=== PATIENT | female | born 1985 | race Caucasian/White ===

== ENCOUNTER 2017-01-15 17:41 | Emergency (ER) | payer BC ==
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
[2017-01-15] MEDS ORDERED: HYDROCODONE/ACETAMINOPHEN 5-325 MG 6 TAB/DSPK PO PRN (20:07)
[2017-01-15 20:08] VITALS: BP 115/70
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
== END 2017-01-15 20:13 | disposition home or self-care (01) ==
LOC: ER 17:41
DX: S49.91XA Unspecified injury of right shoulder and upper arm, initial encounter (principal); M25.511 Pain in right shoulder; W31.89XA Contact with other specified machinery, initial encounter; Y92.9 Unspecified place or not applicable
CPT/HCPCS: 99283

== ENCOUNTER 2017-02-16 20:09 | Emergency (ER) | payer BC ==
[2017-02-16] MEDS ORDERED: LORATADINE 10 MG TABLET PO ONE (20:33)
[2017-02-16] MEDS ORDERED: PREDNISONE 20 MG TABLET PO ONE (20:33)
[2017-02-16] MEDS ORDERED: FAMOTIDINE 20 MG TABLET PO ONE (20:33)
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
[2017-02-16 23:31] VITALS: BP 129/81
== END 2017-02-16 23:24 | disposition home or self-care (01) ==
LOC: ER 20:09
DX: L01.00 Impetigo, unspecified (principal); R22.0 Localized swelling, mass and lump, head; R22.1 Localized swelling, mass and lump, neck; F17.200 Nicotine dependence, unspecified, uncomplicated
CPT/HCPCS: 99283; J7512

== ENCOUNTER 2017-03-16 13:15 | Emergency (ER) | payer BC ==
[2017-03-16] MEDS ORDERED: NORMAL SALINE 1000 ML 1,000 ML IV ONE (14:22)
[2017-03-16] MEDS ORDERED: KETOROLAC TROMETHAMINE INJ/PF 30 MG/1 ML SDV IV ONE (14:22)
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
[2017-03-16 14:56] LABS: ABSOLUTE EOSINOPHILS # (AUTO) 0.1 10^3/uL (0.0-0.6); ABSOLUTE LYMPHOCYTES (AUTO) 3.4 10^3/uL (0.5-4.7); ABSOLUTE MONOCYTES (AUTO) 0.8 10^3/uL (0.1-1.4); ABSOLUTE NEUT (AUTO) 6.1 10^3/uL (1.7-8.2); BASOPHILS % (AUTO) 0.2 % (0-2); EOSINOPHILS % (AUTO) 1.2 % (0-6); HEMATOCRIT 38.5 % (36.0-47.0); HEMOGLOBIN 12.8 g/dL (12.0-15.5); HGB HCT DIFFERENCE -0.1; LYMPHOCYTES % (AUTO) 32.2 % (13-45); MEAN CORPUSCULAR HEMOGLOBIN 30.3 pg (27.0-33.4); MEAN CORPUSCULAR HGB CONC 33.4 g/dL (32.0-36.0); MEAN CORPUSCULAR VOLUME 91 fl (80-97); MONOCYTES % (AUTO) 7.8 % (3-13); RED BLOOD COUNT 4.24 10^6/uL (3.72-5.28); RED CELL DISTRIBUTION WIDTH 13.7 % (11.5-14.0); SEGMENTED NEUTROPHILS % (AUTO) 58.6 % (42-78); WHITE BLOOD COUNT 10.4 10^3/uL (4.0-10.5)
[2017-03-16 15:19] LABS: ALANINE AMINOTRANSFERASE 24 U/L (9-52); ALBUMIN 4.4 g/dL (3.5-5.0); ALKALINE PHOSPHATASE 55 U/L (38-126); ANION GAP 12 (5-19); ASPARTATE AMINO TRANSFERASE 24 U/L (14-36); BILIRUBIN,DIRECT 0.4 mg/dL (0.0-0.4); BILIRUBIN,TOTAL 0.6 mg/dL (0.2-1.3); BLOOD UREA NITROGEN 17 mg/dL (7-20); CALCIUM 9.8 mg/dL (8.4-10.2); CARBON DIOXIDE 24 mmol/L (22-30); CHLORIDE 106 mmol/L (98-107); CREATINE KINASE 74 U/L (30-135); CREATININE RESULT 0.68 mg/dL (0.52-1.25); GLUCOSE 88 mg/dL (75-110); MAGNESIUM 2.1 mg/dL (1.6-2.3); POTASSIUM 4.1 mmol/L (3.6-5.0); SODIUM 142.2 mmol/L (137-145); TOTAL PROTEIN 7.8 g/dL (6.3-8.2)
[2017-03-16 16:23] VITALS: BP 130/90
== END 2017-03-16 16:23 | disposition home or self-care (01) ==
LOC: ER 13:15
DX: M54.12 Radiculopathy, cervical region (principal); M54.2 Cervicalgia; G89.29 Other chronic pain; V86.99XS Unspecified occupant of other special all-terrain or other off-road motor vehicle injured in nontraffic accident, sequela; R68.84 Jaw pain; R51 Headache; R03.0 Elevated blood-pressure reading, without diagnosis of hypertension; Z79.1 Long term (current) use of non-steroidal anti-inflammatories (NSAID); Z79.899 Other long term (current) drug therapy; Z79.01 Long term (current) use of anticoagulants; Z88.8 Allergy status to other drugs, medicaments and biological substances; Z88.5 Allergy status to narcotic agent; Z88.6 Allergy status to analgesic agent
CPT/HCPCS: 99283; 96361; 96374; 36415; 82550; 83735; 85025; 80053; L3650; J1885; J7030

== ENCOUNTER 2017-10-19 13:24 | Emergency (ER) | payer OTHER, BC ==
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
[2017-10-19] MEDS ORDERED: LORAZEPAM 1 MG TABLET PO ONE (15:11)
[2017-10-19] MEDS ORDERED: NORMAL SALINE 1000 ML 1,000 ML IV ONE (15:11)
[2017-10-19] MEDS ORDERED: ACETAMINOPHEN 325 MG TABLET PO ONE (15:12)
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
[2017-10-19 17:51] LABS: APPEARANCE,URINE SLIGHTLY-CLOUDY; BILIRUBIN,URINE NEGATIVE (NEGATIVE); GLUCOSE, URINE NEGATIVE (NEGATIVE); KETONES,URINE NEGATIVE (NEGATIVE); LEUKOCYTE ESTERASE,URINE SMALL (NEGATIVE); NITRITE,URINE POSITIVE (NEGATIVE); PROTEIN,URINE NEGATIVE (NEGATIVE); URINE SPECIFIC GRAVITY 1.004; UROBILINOGEN,URINE NEGATIVE mg/dL (<2.0)
[2017-10-19 17:52] LABS: URINE BARBITURATES SCREEN NEGATIVE; URINE METHADONE SCREEN NEGATIVE; URINE OPIATES LOW NEGATIVE; URINE PHENCYCLIDINE SCREEN NEGATIVE
[2017-10-19 17:55] LABS: BACTERIA,URINE 4+ /HPF
[2017-10-19] MEDS ORDERED: CEPHALEXIN 500 MG CAPSULE PO ONE (18:21)
[2017-10-19 18:57] VITALS: BP 130/78
== END 2017-10-19 18:59 | disposition home or self-care (01) ==
LOC: ER 13:24
DX: S29.012A Strain of muscle and tendon of back wall of thorax, initial encounter (principal); N39.0 Urinary tract infection, site not specified; S16.1XXA Strain of muscle, fascia and tendon at neck level, initial encounter; V89.2XXA Person injured in unspecified motor-vehicle accident, traffic, initial encounter
CPT/HCPCS: 99284; 96360; 36415; 87086; 84443; 87088; 81001; 87186; 80307; 72070; 72125; J7030

== ENCOUNTER 2018-03-30 14:43 | Emergency (ER) | payer BC, OTHER ==
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
[2018-03-30 16:59] LABS: ABSOLUTE EOSINOPHILS # (AUTO) 0.1 10^3/uL (0.0-0.6); ABSOLUTE LYMPHOCYTES (AUTO) 3.3 10^3/uL (0.5-4.7); ABSOLUTE MONOCYTES (AUTO) 0.5 10^3/uL (0.1-1.4); ABSOLUTE NEUT (AUTO) 4.5 10^3/uL (1.7-8.2); BASOPHILS % (AUTO) 0.5 % (0-2); EOSINOPHILS % (AUTO) 0.8 % (0-6); HEMATOCRIT 42.3 % (36.0-47.0); HEMOGLOBIN 14.1 g/dL (12.0-15.5); LYMPHOCYTES % (AUTO) 39.5 % (13-45); MEAN CORPUSCULAR HEMOGLOBIN 30.1 pg (27.0-33.4); MEAN CORPUSCULAR HGB CONC 33.4 g/dL (32.0-36.0); MEAN CORPUSCULAR VOLUME 90 fl (80-97); MONOCYTES % (AUTO) 5.6 % (3-13); PLATELET COUNT 256 10^3/uL (150-450); RED BLOOD COUNT 4.68 10^6/uL (3.72-5.28); RED CELL DISTRIBUTION WIDTH 14.4 % (11.5-14.0); SEGMENTED NEUTROPHILS % (AUTO) 53.6 % (42-78); TOTAL CELLS COUNTED % (AUTO) 100 %; WHITE BLOOD COUNT 8.4 10^3/uL (4.0-10.5)
[2018-03-30 17:03] LABS: APPEARANCE,URINE CLEAR; BILIRUBIN,URINE NEGATIVE (NEGATIVE); COLOR,URINE STRAW; GLUCOSE, URINE NEGATIVE (NEGATIVE); KETONES,URINE NEGATIVE (NEGATIVE); LEUKOCYTE ESTERASE,URINE TRACE (NEGATIVE); NITRITE,URINE NEGATIVE (NEGATIVE); PROTEIN,URINE NEGATIVE (NEGATIVE); URINE SPECIFIC GRAVITY 1.003; UROBILINOGEN,URINE NEGATIVE mg/dL (<2.0)
[2018-03-30 17:16] LABS: ANION GAP 14 (5-19); BLOOD UREA NITROGEN 8 mg/dL (7-20); CARBON DIOXIDE 25 mmol/L (22-30); CHLORIDE 108 mmol/L (98-107); GLUCOSE 109 mg/dL (75-110); POTASSIUM 4.1 mmol/L (3.6-5.0); SODIUM 146.5 mmol/L (137-145)
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
--- NOTE | 2018-03-30 19:39 | RADIOLOGY REPORT (SQ) ---
EXAM DESCRIPTION: CT LTD RENAL STONE PROTOCOL ON COMPLETED DATE/TIME: 03/30/2018 7:07 pm REASON FOR STUDY: bilateral flank pain; eval stones COMPARISON: None. TECHNIQUE: CT scan of the abdomen and pelvis performed without intravenous or oral contrast. Images reviewed with lung, soft tissue, and bone windows. Reconstructed coronal and sagittal MPR images revi ewed. All images stored on PACS. All CT scanners at this facility use dose modulation, iterative reconstruction, and/or weight based d osing when appropriate to reduce radiation dose to as low as reasonably achievable (ALARA). [facility]: Dose Right [facility]: CareDose [facility]: Dose Right [facility]: Teradose 4D [facility]: [employer] RADIATION DOSE: mGy. LIMITATIONS: None. FINDINGS: LOWER CHEST: No significant findings. No nodules or infiltrates. NON-CONTRASTED LIVER, SPLEEN, ADRENALS: Evaluation limited by lack of IV contrast. No identified sign ificant masses. PANCREAS: No masses. No peripancreatic inflammatory changes. GALLBLADDER: No identified stones by CT criteria. No inflammatory changes to suggest cholecystitis. RIGHT KIDNEY AND URETER: No suspicious masses. Assessment limited by lack of IV contrast. No signif icant calcifications. No hydronephrosis or hydroureter. LEFT KIDNEY AND URETER: Marked scarring of the lower pole. No masses. No significant calcification s. No hydronephrosis or hydroureter. AORTA AND RETROPERITONEUM: No aneurysm. No retroperitoneal masses or adenopathy. BOWEL AND PERITONEAL CAVITY: No obvious masses or inflammatory changes. No free fluid. APPENDIX: Normal. PELVIS, BLADDER, AND ABDOMINAL WALL:No abnormal masses. No free fluid. Bladder normal. BONES: No significant findings. OTHER: No other significant finding. IMPRESSION: NO SIGNIFICANT OR ACUTE PROCESS IN THE ABDOMEN OR PELVIS. COMMENT: Quality ID # [id number]: Final reports with documentation of one or more dose reduction techniques (e.g., Automated exposure control, adjustment of the mA and/or kV according to patient size, use of iterative reconstruction technique) TECHNICAL DOCUMENTATION: JOB ID: [id number] [employer]- All Rights Reserved Reading location - IP/workstation name: [email or web address]
[2018-03-30 20:05] VITALS: BP 129/75
== END 2018-03-30 19:45 | disposition home or self-care (01) ==
LOC: ER 14:43
DX: N39.0 Urinary tract infection, site not specified (principal); Z79.899 Other long term (current) drug therapy; Z87.891 Personal history of nicotine dependence; Z88.5 Allergy status to narcotic agent; Z88.6 Allergy status to analgesic agent
CPT/HCPCS: 36415; 76380; 80048; 81001; 81025; 85025; 87086; 87088; 87186; 99284

== ENCOUNTER 2018-04-05 16:21 | Emergency (ER) | payer BC ==
[2018-04-05] MEDS ORDERED: PREDNISONE 20 MG TABLET PO ONE (17:14)
[2018-04-05] MEDS ORDERED: FAMOTIDINE 20 MG TABLET PO ONE (17:15)
[2018-04-05] MEDS ORDERED: DIPHENHYDRAMINE HCL 50 MG CAPSULE PO ONE (17:15)
[2018-04-05] MEDS ORDERED: ACETAMINOPHEN 325 MG TABLET PO ONE (17:16)
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
--- NOTE | 2018-04-05 19:01 | ER Document Report ---
ED General - General Chief Complaint: Allergic Reaction Stated Complaint: POSSIBLE ALLERGIC REACTION Time Seen by Provider: 04/05/18 17:08 Mode of Arrival: Ambulatory Information source: Patient Notes: 32-year-old female who had a cortisone injection in the right tricep region this morning presents with complaints of pain. Patient is concerned she may be having allergic reaction states the pain radiates from the injection site to her back anterior chest wall. She denies any shortness of breath difficulty breathing she denies any rash anywhere TRAVEL OUTSIDE OF THE [place] IN LAST 30 DAYS: No - HPI Onset: Just prior to arrival Onset/Duration: Sudden Quality of pain: Sharp Severity: Mild Pain Level: 1 Associated symptoms: Body/muscle aches Exacerbated by: Movement Relieved by: Denies Similar symptoms previously: Yes Recently seen / treated by doctor: Yes - Related Data Allergies/Adverse Reactions: citalopram hydrobromide [From Celexa] Allergy (Verified 04/05/18 16:25) eletriptan [From Relpax] Allergy (Verified 04/05/18 16:25) hydrocodone bitartrate [From Vicodin] Allergy (Verified 04/05/18 16:25) naproxen sodium [From Treximet] Allergy (Verified 04/05/18 16:25) sumatriptan [From Imitrex] Allergy (Verified 04/05/18 16:25) sumatriptan succinate [From Imitrex] Allergy (Verified 04/05/18 16:25) adhesive tape Adverse Reaction (Verified 04/05/18 16:25) Past Medical History - Social History Smoking Status: Former Smoker Cigarette use (# per day): No Chew tobacco use (# tins/day): No Smoking Education Provided: No Frequency of alcohol use: Rare Drug Abuse: None Family History: Reviewed & Not Pertinent Patient has suicidal ideation: No Patient has homicidal ideation: No Neurological Medical History: Reports: Hx Migraine Renal/ Medical History: Denies: Hx Peritoneal Dialysis Musculoskeltal Medical History: Reports Hx Arthritis, Reports Hx Musculoskeletal Deformity, Reports Hx Musculoskeletal Trauma Psychiatric Medical History: Reports: Hx Anxiety Past Surgical History: Reports: Hx Orthopedic Surgery - Rt shoulder; Lt knee x2 - Immunizations Immunizations up to date: Yes Hx Diphtheria, Pertussis, Tetanus Vaccination: Yes Review of Systems - Review of Systems Notes: REVIEW OF SYSTEMS: CONSTITUTIONAL : Denies fever, chills, or sweats. Denies recent illness. EENT: Denies eye, ear, throat, or mouth pain or symptoms. Denies nasal or sinus congestion or discharge. Denies throat, tongue, or mouth swelling or difficulty swallowing. CARDIOVASCULAR: Denies chest pain. Denies palpitations or racing or irregular heart beat. Denies ankle edema. RESPIRATORY: Denies cough, cold, or chest congestion. Denies shortness of breath, difficulty breathing, or wheezing. GASTROINTESTINAL: Denies abdominal pain or distention. Denies nausea, vomiting , or diarrhea. Denies blood in vomitus, stools, or per rectum. Denies black, tarry stools. Denies constipation. GENITOURINARY: Denies difficulty urinating, painful urination, burning, frequency, blood in urine, or discharge. FEMALE GENITOURINARY: Denies vaginal bleeding, heavy or abnormal periods, irregular periods. Denies vaginal discharge or odor. MUSCULOSKELETAL: Admits to right shoulder pain SKIN: Denies rash, lesions or sores. HEMATOLOGIC : Denies easy bruising or bleeding. LYMPHATIC: Denies swollen, enlarged glands. NEUROLOGICAL: Denies confusion or altered mental status. Denies passing out or loss of consciousness. Denies dizziness or lightheadedness. Denies headache. Denies weakness or paralysis or loss of use of either side. Denies problems with gait or speech. Denies sensory loss, numbness, or tingling. Denies seizures. PSYCHIATRIC: Denies anxiety or stress. Denies depression, suicidal ideation, or homicidal ideation. ALL OTHER SYSTEMS REVIEWED AND NEGATIVE. PHYSICAL EXAMINATION: GENERAL: Well-appearing, well-nourished and in mild distress. HEAD: Atraumatic, normocephalic. EYES: Pupils equal round and reactive to light, extraocular movements intact, conjunctiva are normal. ENT: Nares patent, oropharynx clear without exudates. Moist mucous membranes. NECK: Normal range of motion, supple without lymphadenopathy LUNGS: Breath sounds clear to auscultation bilaterally and equal. No wheezes rales or rhonchi. HEART: Regular rate and rhythm without murmurs ABDOMEN: Soft, nontender, nondistended abdomen. No guarding, no rebound. No masses appreciated. Female : deferred Musculoskeletal: Normal range of motion, no pitting or edema. No cyanosis. Pain with range of motion of the right upper extremity NEUROLOGICAL: Cranial nerves grossly intact. Normal speech, normal gait. Normal sensory, motor exams PSYCH: Normal mood, normal affect. SKIN: Warm, Dry, normal turgor, no rashes or lesions noted. Small puncture wounds from injection site noted no erythema no drainage Dictation was performed using [place] voice recognition software Physical Exam - Vital signs Vitals: Temp Pulse Resp BP Pulse Ox 98.6 F 76 18 127/85 H 97 04/05/18 16:43 04/05/18 16:43 04/05/18 16:43 04/05/18 16:43 04/05/18 16:43 Course - Re-evaluation Re-evalutation: 04/05/18 22:47 Patient's presentation is quite benign, I believe there may have been development of a nerve which may be causing some pain radiating from the shoulder. Overall the patient looks well is in no distress except for mild pain After performing a Medical Screening Examination, I estimate there is LOW risk for infection bleeding paralysis, thus I consider the discharge disposition reasonable. I have reevaluated this patient multiple times and no significant life threatening changes are noted. The patient and I have discussed the diagnosis and risks, and we agree with discharging home and close follow-up. We also discussed returning to the Emergency Department immediately if new or worsening symptoms occur with the understanding that symptoms and presentations can change. We have discussed the symptoms which are most concerning (e.g., saddle anesthesia, urinary or bowel incontinence or retention, changing or worsening pain) that necessitate immediate return. - Vital Signs Vital signs: Temp Pulse Resp BP Pulse Ox 98.6 F 80 18 125/78 95 04/05/18 19:22 04/05/18 19:22 04/05/18 19:22 04/05/18 19:22 04/05/18 19:22 Discharge - Discharge Clinical Impression: Nerve impingement Arm pain Qualifiers: Laterality: right Qualified Code(s): M79.601 - Pain in right arm Condition: Stable Disposition: HOME, SELF-CARE Instructions: Neuropathy ([facility]) Prescriptions: Tramadol HCl 50 mg PO Q6 #10 tablet Referrals: MARCOS KWAN MD [Primary Care Provider] - Follow up as needed
[2018-04-05 19:23] VITALS: BP 125/78
== END 2018-04-05 19:23 | disposition home or self-care (01) ==
LOC: ER 16:21
DX: M75.41 Impingement syndrome of right shoulder (principal); M79.601 Pain in right arm; M79.1 Myalgia; Z87.891 Personal history of nicotine dependence
CPT/HCPCS: 99283; J7512

== ENCOUNTER 2018-05-29 22:05 | Emergency (ER) | payer BC ==
[2018-05-29] MEDS ORDERED: ASPIRIN 81 MG TABLET, CHEWABLE PO ONE (22:22)
--- NOTE | 2018-05-29 23:39 | RADIOLOGY REPORT (SQ) ---
EXAM DESCRIPTION: XR CHEST 1 VIEW COMPLETED DATE/TME: 05/29/2018 22:22 EXAM DESCRIPTION: Single view of the chest CLINICAL HISTORY: cp COMPARISON: 08/21/2014 FINDINGS: Single frontal view of the chest. The cardiomediastinal silhouette has normal size and contour. No consolidation, pneumothorax, or pleural effusion. No displaced rib fractures identified. Upper abdominal soft tissues are unremarkable. IMPRESSION: 1. No acute pulmonary process identified.
[2018-05-30] MEDS ORDERED: ONDANSETRON 4 MG TAB.RAPDIS PO ONE (00:17)
--- NOTE | 2018-05-30 00:20 | ER Document Report ---
ED Medical Screen (RME) - General Chief Complaint: Chest Pain Stated Complaint: CHEST PAIN Time Seen by Provider: 05/30/18 00:16 Mode of Arrival: Ambulatory Information source: Patient Notes: A 32-year-old female presents to ED for complaint of pain in her right shoulder and neck pain and across her chest and back and nausea with dry heaving. She states she recently had a MRI that shows a bone growth in her right shoulder and some possible fluid in her right shoulder. She states she called the orthopedic today and they told her to fax the report over and then called to get an appointment. She states she got the MRI ordered by [facility] who provides her with Lyrica but not narcotics. Patient is alert and oriented respirations regular and unlabored no acute distress noted and vital signs are stable. Patient is moving freely while in the emergency room pit area. I have greeted and performed a rapid initial assessment of this patient. A comprehensive ED assessment and evaluation of the patient, analysis of test results and completion of medical decision making process will be conducted by an additional ED providers. TRAVEL OUTSIDE OF THE [place] IN LAST 30 DAYS: No - Related Data Allergies/Adverse Reactions: citalopram hydrobromide [From Celexa] Allergy (Verified 04/05/18 16:25) eletriptan [From Relpax] Allergy (Verified 04/05/18 16:25) hydrocodone bitartrate [From Vicodin] Allergy (Verified 04/05/18 16:25) naproxen sodium [From Treximet] Allergy (Verified 04/05/18 16:25) sumatriptan [From Imitrex] Allergy (Verified 04/05/18 16:25) sumatriptan succinate [From Imitrex] Allergy (Verified 04/05/18 16:25) adhesive tape Adverse Reaction (Verified 04/05/18 16:25) Past Medical History Neurological Medical History: Reports: Hx Migraine Renal/ Medical History: Denies: Hx Peritoneal Dialysis Musculoskeltal Medical History: Reports Hx Arthritis, Reports Hx Musculoskeletal Deformity, Reports Hx Musculoskeletal Trauma Psychiatric Medical History: Reports: Hx Anxiety Past Surgical History: Reports: Hx Orthopedic Surgery - Rt shoulder; Lt knee x2 - Immunizations Immunizations up to date: Yes Hx Diphtheria, Pertussis, Tetanus Vaccination: Yes Physical Exam - Vital signs Vitals: Temp Pulse Resp BP Pulse Ox 97.4 F 96 18 112/82 97 05/29/18 23:35 05/29/18 23:35 05/29/18 23:35 05/29/18 23:35 05/29/18 23:35 Course - Vital Signs Vital signs: Temp Pulse Resp BP Pulse Ox 97.4 F 96 18 112/82 97 05/29/18 23:35 05/29/18 23:35 05/29/18 23:35 05/29/18 23:35 05/29/18 23:35 Doctor's Discharge - Discharge Referrals: MARCOS KWAN MD [Primary Care Provider] - Follow up as needed
[2018-05-30 00:44] LABS: ABSOLUTE BASOPHILS # (AUTO) 0.1 10^3/uL (0.0-0.2); ABSOLUTE EOSINOPHILS # (AUTO) 0.1 10^3/uL (0.0-0.6); ABSOLUTE LYMPHOCYTES (AUTO) 3.6 10^3/uL (0.5-4.7); ABSOLUTE MONOCYTES (AUTO) 0.7 10^3/uL (0.1-1.4); ABSOLUTE NEUT (AUTO) 6.7 10^3/uL (1.7-8.2); BASOPHILS % (AUTO) 0.6 % (0-2); EOSINOPHILS % (AUTO) 1.1 % (0-6); HEMATOCRIT 43.7 % (36.0-47.0); LYMPHOCYTES % (AUTO) 32.3 % (13-45); MEAN CORPUSCULAR HEMOGLOBIN 30.9 pg (27.0-33.4); MEAN CORPUSCULAR HGB CONC 34.3 g/dL (32.0-36.0); MEAN CORPUSCULAR VOLUME 90 fl (80-97); MONOCYTES % (AUTO) 5.9 % (3-13); PLATELET COUNT 263 10^3/uL (150-450); RED BLOOD COUNT 4.85 10^6/uL (3.72-5.28); RED CELL DISTRIBUTION WIDTH 13.7 % (11.5-14.0); SEGMENTED NEUTROPHILS % (AUTO) 60.1 % (42-78); TOTAL CELLS COUNTED % (AUTO) 100 %; WHITE BLOOD COUNT 11.2 10^3/uL (4.0-10.5)
[2018-05-30 01:04] LABS: ALANINE AMINOTRANSFERASE 31 U/L (9-52); ALBUMIN 4.8 g/dL (3.5-5.0); ALKALINE PHOSPHATASE 75 U/L (38-126); ANION GAP 15 (5-19); ASPARTATE AMINO TRANSFERASE 24 U/L (14-36); BILIRUBIN,DIRECT 0.4 mg/dL (0.0-0.4); BILIRUBIN,TOTAL 0.7 mg/dL (0.2-1.3); BLOOD UREA NITROGEN 12 mg/dL (7-20); CALCIUM 9.8 mg/dL (8.4-10.2); CARBON DIOXIDE 25 mmol/L (22-30); CHLORIDE 106 mmol/L (98-107); CREATINE KINASE 41 U/L (30-135); GLUCOSE 93 mg/dL (75-110); POTASSIUM 4.3 mmol/L (3.6-5.0); SODIUM 145.5 mmol/L (137-145)
[2018-05-30 01:15] LABS: CREATINE KINASE MB < 0.22 ng/mL (<4.55); TROPONIN I < 0.012 ng/mL
[2018-05-30 03:15] LABS: APPEARANCE,URINE CLOUDY; BILIRUBIN,URINE NEGATIVE (NEGATIVE); COLOR,URINE YELLOW; GLUCOSE, URINE NEGATIVE (NEGATIVE); KETONES,URINE NEGATIVE (NEGATIVE); LEUKOCYTE ESTERASE,URINE LARGE (NEGATIVE); NITRITE,URINE POSITIVE (NEGATIVE); PROTEIN,URINE NEGATIVE (NEGATIVE); URINE SPECIFIC GRAVITY 1.015; UROBILINOGEN,URINE NEGATIVE mg/dL (<2.0)
[2018-05-30] MEDS ORDERED: PHENAZOPYRIDINE HCL 100 MG TABLET PO ONE (03:19)
[2018-05-30] MEDS ORDERED: SULFAMETHOXAZOLE/TRIMETHOPRIM 800-160 MG TABLET PO ONE (03:19)
--- NOTE | 2018-05-30 03:20 | ER Document Report ---
ED GI/ - General Chief Complaint: Chest Pain Stated Complaint: CHEST PAIN Time Seen by Provider: 05/30/18 00:16 Mode of Arrival: Ambulatory Notes: Patient is a 32-year-old female who presents with chief complaint right-sided chest pain with radiation to her right shoulder and right back. Patient reports this pain has been going on for 1-2 years. Patient reports that the pain in her right chest usually lasts for about 1-2 minutes per episode and self resolving. Patient reports that she has been vomiting for the last 2 days and that she is only able to hold down Mountain Dew and boiled eggs. TRAVEL OUTSIDE OF THE [place] IN LAST 30 DAYS: No - Related Data Allergies/Adverse Reactions: citalopram hydrobromide [From Celexa] Allergy (Verified 04/05/18 16:25) eletriptan [From Relpax] Allergy (Verified 04/05/18 16:25) hydrocodone bitartrate [From Vicodin] Allergy (Verified 04/05/18 16:25) naproxen sodium [From Treximet] Allergy (Verified 04/05/18 16:25) sumatriptan [From Imitrex] Allergy (Verified 04/05/18 16:25) sumatriptan succinate [From Imitrex] Allergy (Verified 04/05/18 16:25) adhesive tape Adverse Reaction (Verified 04/05/18 16:25) Past Medical History - General Information source: Patient - Social History Smoking Status: Never Smoker Frequency of alcohol use: None Drug Abuse: None Family History: Reviewed & Not Pertinent Neurological Medical History: Reports: Hx Migraine Renal/ Medical History: Denies: Hx Peritoneal Dialysis Musculoskeletal Medical History: Reports Hx Arthritis, Reports Hx Musculoskeletal Deformity, Reports Hx Musculoskeletal Trauma Psychiatric Medical History: Reports: Hx Anxiety Past Surgical History: Reports: Hx Orthopedic Surgery - Rt shoulder; Lt knee x2 - Immunizations Immunizations up to date: Yes Hx Diphtheria, Pertussis, Tetanus Vaccination: Yes Review of Systems - Review of Systems Constitutional: No symptoms reported EENT: No symptoms reported Cardiovascular: See HPI Respiratory: No symptoms reported Gastrointestinal: No symptoms reported Genitourinary: Other - Cloudy and foul-smelling urine Female Genitourinary: No symptoms reported Musculoskeletal: No symptoms reported Skin: No symptoms reported Hematologic/Lymphatic: No symptoms reported Neurological/Psychological: No symptoms reported Physical Exam - Vital signs Vitals: Temp Pulse Resp BP Pulse Ox 97.4 F 96 18 112/82 97 05/29/18 23:35 05/29/18 23:35 05/29/18 23:35 05/29/18 23:35 05/29/18 23:35 - Notes Notes: PHYSICAL EXAMINATION: GENERAL: Well-appearing, well-nourished and in no acute distress. HEAD: Atraumatic, normocephalic. EYES: Pupils equal round and reactive to light, extraocular movements intact, conjunctiva are normal. ENT: Nares patent, oropharynx clear without exudates. Moist mucous membranes. NECK: Normal range of motion, supple without lymphadenopathy LUNGS: Breath sounds clear to auscultation bilaterally and equal. No wheezes rales or rhonchi. HEART: Regular rate and rhythm without murmurs ABDOMEN: Soft, nontender, nondistended abdomen. No guarding, no rebound. No masses appreciated. Female : No CVA tenderness. Musculoskeletal: Normal range of motion, no pitting or edema. No cyanosis. NEUROLOGICAL: Cranial nerves grossly intact. Normal speech, normal gait. Normal sensory, motor exams PSYCH: Normal mood, normal affect. SKIN: Warm, Dry, normal turgor, no rashes or lesions noted. Course - Re-evaluation Re-evalutation: Patient is an otherwise healthy 32-year-old female presenting with chief complaint of chest pain. Patient was initially seen by triage provider who ordered a chest pain workup. On my initial encounter with the patient and asking the patient what she was here for she removed an MRI report from her purse from 3 months ago showing that she had chronic injuries to her right shoulder. Patient reports that she has not followed up with her primary care provider about this. Patient further reports to me that she is on pain management however she is "not a drug seeker". Patient reports that this chest pain has been ongoing for 1-2 years. The only new symptom patient is reporting today is cloudy and foul-smelling urine. Initial chest pain workup ordered by triage provider is all unremarkable. EKG is normal with a sinus tachycardia, rate of 100, normal axis, no ST segment elevations or depressions. All lab work is unremarkable. Chest x-ray was normal. Patient's physical examination is unremarkable. Will on add on a urinalysis due to patient's new complaints of foul-smelling cloudy urine. Patient is requesting pain medication for her right shoulder pain. I did offer ibuprofen or acetaminophen which patient did decline. Urinalysis with positive nitrites, large leukocytes and 3+ bacteria. Patient does not have any CVA tenderness and denies any fevers. Will place patient on antibiotic for UTI. Patient does continue to verbalize discontent with me not treating her pain that has been ongoing for the last 2 years. 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 - Vital Signs Vital signs: Temp Pulse Resp BP Pulse Ox 97.4 F 96 20 107/85 98 05/29/18 23:35 05/29/18 23:35 05/30/18 03:01 05/30/18 03:01 05/30/18 03:01 - Laboratory Result Diagrams: 05/30/18 00:32 05/30/18 00:32 Laboratory results interpreted by me: 05/30/18 05/30/18 05/30/18 00:32 00:32 02:06 WBC 11.2 H Sodium 145.5 H Urine Nitrite POSITIVE H Ur Leukocyte Esterase LARGE H Urine Ascorbic Acid 40 H Discharge - Discharge Clinical Impression: Urinary tract infection Qualifiers: Urinary tract infection type: site unspecified Hematuria presence: without hematuria Qualified Code(s): N39.0 - Urinary tract infection, site not specified Condition: Stable Disposition: HOME, SELF-CARE Additional Instructions: URINARY TRACT INFECTION: Your evaluation indicates that you have a urinary tract infection. This is due to germs growing in the bladder. This is a common problem. This infection usually responds quickly to antibiotics. Your antibiotic should be taken exactly as prescribed. Drink plenty of fluids -- three to four quarts a day. Occasionally, a bladder anesthetic will be prescribed to help stop the feeling of urgency until the antibiotic has a chance to clear the infection. This may cause your urine to be dark orange. Certain urine infections require a culture. If the doctor obtained a culture, the results will be back in two days. You should call to see if a change in treatment is needed. A repeat urinalysis after you finish treatment is often recommended. The physician will let you know if further testing is required. Call the doctor if you develop fever, chills, flank pain, inability to urinate, or blood in the urine. ANTIBIOTIC THERAPY: You have been given an antibiotic prescription. It's important that you take all the medication, unless instructed otherwise by your physician. Failure to complete the entire course can result in relapse of your condition. Common side effects of antibiotics include nausea, intestinal cramping, or diarrhea. Women may develop vaginal yeast infections, and babies can get yeast (thrush) in the mouth following the use of antibiotics. Contact your physician if you develop significant side effects from this medication. Allergy to this antibiotic can result in hives, wheezing, faintness, or itching. If symptoms of allergy occur, stop the medication and call the doctor. TRIMETHOPRIM-SULFA: You have been given a prescription for trimethoprim-sulfa (TMS, Septra, Bactrim). This is a combination antibiotic of the sulfa class, often used for urinary tract infections, middle ear infections, bronchitis, shigella intestinal infection, and Pneumocystis pneumonia. TMS is usually well-tolerated. Occasional side effects include nausea and decreased appetite. Septra is not recommended for infants less than two months of age. Do not take this medication if you have experienced severe side effects or allergy to sulfa medicine. You should stop this medicine at once and contact your physician if you develop any rash, joint pain, shortness of breath, bruising, or jaundice ( yellow color in the skin), or if you develop any other new or unusual symptoms. URINARY ANESTHETIC AGENT: You have been given a medication (Pyridium) for urinary tract discomfort. This medicine numbs the lining of the bladder and urethra, resulting in less pain, burning, and urgency. You may take it as needed, according to instructions. When the symptoms resolve, you can stop this medication (be sure to continue any other medications the doctor has given you). This medicine turns the urine a dark orange. It may stain underwear. Occasionally, it can cause nausea. Return for evaluation if there are any unexpected effects, such as itching, hives, or shortness of breath. FOLLOW-UP CARE: If you have been referred to a physician for follow-up care, call the physician s office for an appointment as you were instructed or within the next two days. If you experience worsening or a significant change in your symptoms, notify the physician immediately or return to the Emergency Department at any time for re-evaluation. Prescriptions: Phenazopyridine HCl [Pyridium 100 Mg Tablet] 100 mg PO TID PRN #6 tablet PRN Reason: for pain Sulfamethoxazole/Trimethoprim [Septra-Ds 800-160 mg Tablet] 1 tab PO BID 7 Days #14 tablet Referrals: MARCOS KWAN MD [Primary Care Provider] - Follow up as needed
[2018-05-30 03:49] VITALS: BP 107/85
--- NOTE | 2018-05-30 20:41 | EKG REPORT ---
SEVERITY:- NORMAL ECG - SINUS TACHYCARDIA : Confirmed by: María Lala MD 30-May-2018 20:40:15
--- NOTE | 2018-05-30 20:41 | EKG REPORT ---
SEVERITY:- OTHERWISE NORMAL ECG - INCOMPLETE ANALYSIS DUE TO MISSING DATA IN PRECORDIAL LEAD(S) SINUS TACHYCARDIA : Confirmed by: María Lala MD 30-May-2018 20:40:24
== END 2018-05-30 03:49 | disposition home or self-care (01) ==
LOC: ER 22:05
DX: N39.0 Urinary tract infection, site not specified (principal); R07.9 Chest pain, unspecified; M25.511 Pain in right shoulder; M54.9 Dorsalgia, unspecified
CPT/HCPCS: 93005; 99285; 36415; 87086; 82553; 82550; 84703; 85025; 87088; 80053; 81001; 84484; 87186; 71045; 93010; S0119; J3490

== ENCOUNTER 2018-08-29 14:04 | Inpatient (IN) | payer BC ==
[2018-08-29] MEDS ORDERED: NORMAL SALINE 1000 ML 1,000 ML IV ONE (14:35)
[2018-08-29] MEDS ORDERED: ONDANSETRON HCL INJ/PF 4 MG/2 ML SDV IV ONE (14:35)
[2018-08-29] MEDS ORDERED: ONDANSETRON HCL INJ/PF 4 MG/2 ML SDV ONE (14:35)
[2018-08-29 14:49] LABS: ABSOLUTE BASOPHILS # (AUTO) 0.1 10^3/uL (0.0-0.2); ABSOLUTE EOSINOPHILS # (AUTO) 0.2 10^3/uL (0.0-0.6); ABSOLUTE MONOCYTES (AUTO) 0.4 10^3/uL (0.1-1.4); ABSOLUTE NEUT (AUTO) 8.7 10^3/uL (1.7-8.2); BASOPHILS % (AUTO) 0.7 % (0-2); EOSINOPHILS % (AUTO) 1.4 % (0-6); HEMATOCRIT 42.8 % (36.0-47.0); HEMOGLOBIN 14.3 g/dL (12.0-15.5); LYMPHOCYTES % (AUTO) 34.7 % (13-45); MEAN CORPUSCULAR HEMOGLOBIN 31.1 pg (27.0-33.4); MEAN CORPUSCULAR HGB CONC 33.3 g/dL (32.0-36.0); MEAN CORPUSCULAR VOLUME 93 fl (80-97); PLATELET COUNT 326 10^3/uL (150-450); RED BLOOD COUNT 4.59 10^6/uL (3.72-5.28); RED CELL DISTRIBUTION WIDTH 14.2 % (11.5-14.0); SEGMENTED NEUTROPHILS % (AUTO) 60.2 % (42-78); TOTAL CELLS COUNTED % (AUTO) 100 %; WHITE BLOOD COUNT 14.5 10^3/uL (4.0-10.5)
[2018-08-29 14:50] LABS: VENOUS BLOOD BASE EXCESS -4.4 mmol/L; VENOUS BLOOD HCO3 22.7 mmol/L (20-32); VENOUS BLOOD PCO2 49.5 mmHg (35-63); VENOUS BLOOD PH 7.28 (7.30-7.42)
--- NOTE | 2018-08-29 14:57 | RADIOLOGY REPORT (SQ) ---
EXAM DESCRIPTION: CHEST SINGLE VIEW COMPLETED DATE/TIME: 08/29/2018 2:44 pm REASON FOR STUDY: Low oxygen saturation COMPARISON: None. EXAM PARAMETERS: NUMBER OF VIEWS: One view. TECHNIQUE: Single frontal radiographic view of the chest acquired. RADIATION DOSE: NA LIMITATIONS: None. FINDINGS: LUNGS AND PLEURA: Diffuse mixed interstitial and alveolar opacities with some air bronchog lynsey. No effusions. MEDIASTINUM AND HILAR STRUCTURES: Normal for technique. HEART AND VASCULAR STRUCTURES: Normal for technique. Normal vasculature. BONES: No acute findings. HARDWARE: None in the chest. OTHER: No other significant finding. IMPRESSION: Pulmonary edema. TECHNICAL DOCUMENTATION: JOB ID: [id number] [employer]- All Rights Reserved Reading location - IP/workstation name: [email or web address]
--- NOTE | 2018-08-29 15:01 | ER Document Report ---
ED Resuscitation - General Mode of Arrival: Ambulatory Information source: Patient TRAVEL OUTSIDE OF THE [place] IN LAST 30 DAYS: No <RICARDO GROVER - Last Filed: 08/29/18 16:50> <GOPI TIMMONS - Last Filed: 08/29/18 18:45> - General Chief Complaint: Overdose Stated Complaint: POSSIBLE OVERDOSE Time Seen by Provider: 08/29/18 14:28 Notes: 32-year-old female who presents to the emergency department today with complaints of an overdose prior to arrival. Patient states she snorted what she thought was a Percocet prior to arrival. Patient was found unresponsive with another person in the vehicle according to EMS. Bystanders CPR was administered. Law enforcement arrived first on scene and gave 2 mg of intranasal Narcan. When EMS arrived on scene they also administered 2 more milligrams of intranasal Narcan as the patient was only respirating at 6-8 times a minute after the initial 2 mg of Narcan from law enforcement were given. After the total of 4 mg of intranasal Narcan the patient was saturating 80%. Patient states she snorted the pill to relieve her chronic back pain. ( RICARDO GROVER) - Related Data Allergies/Adverse Reactions: citalopram hydrobromide [From Celexa] Allergy (Verified 04/05/18 16:25) eletriptan [From Relpax] Allergy (Verified 04/05/18 16:25) hydrocodone bitartrate [From Vicodin] Allergy (Verified 04/05/18 16:25) naproxen sodium [From Treximet] Allergy (Verified 04/05/18 16:25) sumatriptan [From Imitrex] Allergy (Verified 04/05/18 16:25) sumatriptan succinate [From Imitrex] Allergy (Verified 04/05/18 16:25) adhesive tape Adverse Reaction (Verified 04/05/18 16:25) Past Medical History - General Information source: Patient - Social History Smoking Status: Current Every Day Smoker Cigarette use (# per day): Yes Frequency of alcohol use: Social Drug Abuse: None Lives with: Family Family History: Reviewed & Not Pertinent Neurological Medical History: Reports: Hx Migraine Musculoskeletal Medical History: Reports Hx Arthritis, Reports Hx Musculoskeletal Deformity, Reports Hx Musculoskeletal Trauma Psychiatric Medical History: Reports: Hx Anxiety Past Surgical History: Reports: Hx Orthopedic Surgery - Rt shoulder; Lt knee x2 - Immunizations Immunizations up to date: Yes Hx Diphtheria, Pertussis, Tetanus Vaccination: Yes <RICARDO GROVER - Last Filed: 08/29/18 16:50> Review of Systems - Review of Systems Constitutional: See HPI, Other - Opioid overdose EENT: No symptoms reported Cardiovascular: No symptoms reported Respiratory: See HPI, Hemoptysis, Short of breath Gastrointestinal: No symptoms reported Genitourinary: No symptoms reported Female Genitourinary: No symptoms reported Musculoskeletal: No symptoms reported Skin: No symptoms reported Hematologic/Lymphatic: No symptoms reported Neurological/Psychological: No symptoms reported -: Yes All other systems reviewed and negative <RICARDO GROVER - Last Filed: 08/29/18 16:50> Physical Exam <RICARDO GROVER - Last Filed: 08/29/18 16:50> <GOPI TIMMONS - Last Filed: 08/29/18 18:45> - Vital signs Vitals: BP Pulse Ox 93/80 L 74 L 08/29/18 14:12 08/29/18 14:12 - Notes Notes: Physical Exam: General: Alert, in moderate distress. HEENT: Normocephalic. Atraumatic. PERRL. Extraocular movements intact. Oropharynx clear. Neck: Supple. Non-tender. Respiratory: Moderate respiratory distress, saturating in the upper 70s. Spitting up bloody sputum. Cardiovascular: Regular rate and rhythm. Abdominal: Obese. Nontender, complains of nausea. No distension. Normal Bowel Sounds. Back: Non-tender. No deformity or step off. Extremities: Moves all four extremities. Upper extremities: Normal inspection. Normal ROM. Lower extremities: Normal inspection. No edema. Normal ROM. Neurological: Normal cognition. AAOx4. Normal speech. Psychological: Normal affect. Normal Mood. Skin: Warm. Dry. Normal color. (RICARDO GROVER) Course - Laboratory Result Diagrams: 08/29/18 14:35 08/29/18 14:35 <RICARDO GROVER - Last Filed: 08/29/18 16:50> - Laboratory Result Diagrams: 08/29/18 14:35 08/29/18 14:35 - EKG Interpretation by Ok EKG shows normal: Sinus rhythm, [place], Intervals, QRS Complexes. abnormal: ST-T Waves - Borderline T wave abnormalities Rate: Tachycardia - 117 When compared to previous EKG there are: Previous EKG unavailable <GOPI TIMMONS - Last Filed: 08/29/18 18:45> - Re-evaluation Re-evalutation: 08/29/18 15:04 After Zofran IV for the nausea, and BiPAP started for the hypoxia, the patient is smiling and much more comfortable. Her pulse ox is 95% on 100% FiO2 with the BiPAP. Her chest x-ray does look like generalized pulmonary edema, which would be unusual if there was no IV drug involvement. (GOPI TIMMONS) - Vital Signs Vital signs: Temp Pulse Resp BP Pulse Ox 97.6 F 28 H 106/77 96 08/29/18 14:28 08/29/18 15:31 08/29/18 15:31 08/29/18 15:31 - Laboratory Laboratory results interpreted by me: 08/29/18 08/29/18 08/29/18 14:35 14:35 14:35 WBC 14.5 H RDW 14.2 H Absolute Neutrophils 8.7 H Absolute Lymphocytes 5.0 H Carbonic Acid ABG pH ABG pCO2 ABG pO2 ABG HCO3 ABG Total CO2 VBG pH Glucose 171 H Lactic Acid 3.0 H AST 99 H ALT 64 H Urine Protein Ur Leukocyte Esterase Urine Ascorbic Acid Salicylates < 1.0 L Acetaminophen < 10 L 08/29/18 08/29/18 08/29/18 14:35 15:55 17:23 WBC RDW Absolute Neutrophils Absolute Lymphocytes Carbonic Acid 1.77 H ABG pH 7.26 L ABG pCO2 58.9 H ABG pO2 107.7 H ABG HCO3 25.5 H ABG Total CO2 27.4 H VBG pH 7.28 L Glucose Lactic Acid AST ALT Urine Protein 30 H Ur Leukocyte Esterase MODERATE H Urine Ascorbic Acid 40 H Salicylates Acetaminophen Critical Care Note - Critical Care Note Total time excluding time spent on procedures (mins): 55 <GOPI TIMMONS - Last Filed: 08/29/18 18:45> Discharge <RICARDO GROVER - Last Filed: 08/29/18 16:50> - Discharge Admitting Provider: Hospitalist Unit Admitted: ICU <GOPI TIMMONS - Last Filed: 08/29/18 18:45> - Discharge Clinical Impression: Acute respiratory failure with hypoxia Overdose of opiate or related narcotic Qualifiers: Encounter type: initial encounter Injury intent: accidental or unintentional Qualified Code(s): T40.601A - Poisoning by unspecified narcotics, accidental ( unintentional), initial encounter Pneumonia Qualifiers: Pneumonia type: due to unspecified organism Laterality: bilateral Lung location : unspecified part of lung Qualified Code(s): J18.9 - Pneumonia, unspecified organism Urinary tract infection Qualifiers: Urinary tract infection type: site unspecified Hematuria presence: without hematuria Qualified Code(s): N39.0 - Urinary tract infection, site not specified Condition: Fair Disposition: ADMITTED INPATIENT Referrals: MARCOS KWAN MD [Primary Care Provider] - Follow up as needed Scribe Attestation: 08/29/18 15:06 I personally performed the services described in the documentation, reviewed and edited the documentation which was dictated to the scribe in my presence, and it accurately records my words and actions. (GOPI TIMMONS) Scribe Documentation - Scribe Written by Mike:: Mike Herbert, 08/29/2018 1656 acting as scribe for :: Julio <RICARDO GROVER - Last Filed: 08/29/18 16:50>
[2018-08-29 15:07] LABS: ALANINE AMINOTRANSFERASE 64 U/L (9-52); ALBUMIN 4.5 g/dL (3.5-5.0); ALKALINE PHOSPHATASE 73 U/L (38-126); ANION GAP 15 (5-19); ASPARTATE AMINO TRANSFERASE 99 U/L (14-36); BILIRUBIN,DIRECT 0.4 mg/dL (0.0-0.4); BILIRUBIN,TOTAL 0.6 mg/dL (0.2-1.3); BLOOD UREA NITROGEN 15 mg/dL (7-20); CALCIUM 9.4 mg/dL (8.4-10.2); CARBON DIOXIDE 22 mmol/L (22-30); CHLORIDE 103 mmol/L (98-107); CREATINE KINASE 76 U/L (30-135); GLUCOSE 171 mg/dL (75-110); POTASSIUM 4.2 mmol/L (3.6-5.0); SODIUM 139.6 mmol/L (137-145); TOTAL PROTEIN 7.7 g/dL (6.3-8.2)
[2018-08-29 15:08] LABS: ACETAMINOPHEN < 10 ug/mL (10-30); SALICYLATE < 1.0 mg/dL (2.0-20.0)
[2018-08-29 15:18] LABS: CREATINE KINASE MB 1.08 ng/mL (<4.55); NT PRO BNP 37 pg/mL (<125)
[2018-08-29 15:20] LABS: TROPONIN I < 0.012 ng/mL
[2018-08-29 16:32] LABS: URINE AMPHETAMINES SCREEN NEGATIVE; URINE BARBITURATES SCREEN NEGATIVE; URINE BENZODIAZEPINES SCREEN NEGATIVE; URINE COCAINE SCREEN NEGATIVE; URINE MARIJUANA (THC) SCREEN UNCONFIRMED POSITIVE; URINE METHADONE SCREEN NEGATIVE; URINE PHENCYCLIDINE SCREEN NEGATIVE
[2018-08-29] MEDS ORDERED: LEVOFLOXACIN 750 MG/D5W RTU 750 MG/150 ML RTUPB IV ONE (16:32)
[2018-08-29 16:38] LABS: APPEARANCE,URINE CLOUDY; BILIRUBIN,URINE NEGATIVE (NEGATIVE); COLOR,URINE YELLOW; GLUCOSE, URINE NEGATIVE (NEGATIVE); KETONES,URINE NEGATIVE (NEGATIVE); LEUKOCYTE ESTERASE,URINE MODERATE (NEGATIVE); NITRITE,URINE NEGATIVE (NEGATIVE); PROTEIN,URINE 30 mg/dL (NEGATIVE); URINE SPECIFIC GRAVITY 1.027; UROBILINOGEN,URINE NEGATIVE mg/dL (<2.0)
[2018-08-29 17:41] LABS: ARTERIAL BLOOD BASE EXCESS -2.8 mmol/L; ARTERIAL BLOOD H2CO3 1.77 mmol/L (1.05-1.35); ARTERIAL BLOOD HCO3 25.5 mmol/L (20-24); ARTERIAL BLOOD O2 SATURATION 97.1 % (94-98); ARTERIAL BLOOD PCO2 58.9 mmHg (35-45); ARTERIAL BLOOD PH 7.26 (7.35-7.45); ARTERIAL BLOOD PO2 107.7 mmHg (80-100); ARTERIAL BLOOD TOTAL CO2 27.4 mmol/L (21-25)
[2018-08-29 17:43] LABS: ARTERIAL BLOOD FIO2 100%
[2018-08-29] MEDS ORDERED: ONDANSETRON HCL INJ/PF 4 MG/2 ML SDV IV PRN (18:24)
[2018-08-29] MEDS ORDERED: ACETAMINOPHEN 325 MG TABLET PO PRN (18:24)
[2018-08-29] MEDS ORDERED: NALOXONE HCL INJ 2 MG/2 ML DISP.SYRIN IV PRN (18:35)
--- NOTE | 2018-08-29 18:54 | PDOC H&P ---
History of Present Illness Admission Date/PCP: MARCOS KWAN MD Patient complains of: Opioid overdose History of Present Illness: 32-year-old female who presents to the emergency department today with complaints of an overdose prior to arrival. Patient states she snorted what she thought was a Percocet prior to arrival. Patient was found unresponsive with another person in the vehicle according to EMS. Bystanders CPR was administered. Law enforcement arrived first on scene and gave 2 mg of intranasal Narcan. When EMS arrived on scene they also administered 2 more milligrams of intranasal Narcan as the patient was only respirating at 6-8 times a minute after the initial 2 mg of Narcan from law enforcement were given. After the total of 4 mg of intranasal Narcan the patient was saturating 80%. Patient states she snorted the pill to relieve her chronic back pain. In the emergency room patient vomited small amount of blood was given Zofran and had no further emesis or hematemesis. Chest x-ray showed diffuse bilateral fluffy infiltrates consistent with pulmonary edema. She was placed on BiPAP for approximately 2 hours and ABG showed good oxygenation with CO2 retention. She was awake sitting up with pupillary reflexes she did not receive any further Narcan while in the emergency room. Patient states she snorts the Percocet because it gets into her system quicker but she only does this once or twice a month when her pain is severe because she is not receiving treatment. She also self medicates with marijuana denies use of methamphetamines crack cocaine or IV illicit drugs. Her urinalysis was consistent with a UTI. She was initiated on Levaquin for bilateral pneumonia and urinary tract infection. Past Medical History Neurological Medical History: Reports: Migraine Musculoskeltal Medical History: Reports: Arthritis, Other - Neck pain bilateral paresthesias lumbago Past Surgical History Past Surgical History: Reports: Orthopedic Surgery - Rt shoulder; Lt knee x2 Social History Lives with: Family Smoking Status: Current Every Day Smoker Family History Family History: Reviewed & Not Pertinent, Other - Adopted Parental Family History Reviewed: Yes - Adopted Children Family History Reviewed: Yes Sibling(s) Family History Reviewed.: Yes Medication/Allergy Allergies/Adverse Reactions: citalopram hydrobromide [From Celexa] Allergy (Verified 04/05/18 16:25) eletriptan [From Relpax] Allergy (Verified 04/05/18 16:25) hydrocodone bitartrate [From Vicodin] Allergy (Verified 04/05/18 16:25) naproxen sodium [From Treximet] Allergy (Verified 04/05/18 16:25) sumatriptan [From Imitrex] Allergy (Verified 04/05/18 16:25) sumatriptan succinate [From Imitrex] Allergy (Verified 04/05/18 16:25) adhesive tape Adverse Reaction (Verified 04/05/18 16:25) Review of Systems Constitutional: ABSENT: chills, fever(s), headache(s), weight gain, weight loss Eyes: ABSENT: visual disturbances Cardiovascular: ABSENT: chest pain, dyspnea on exertion, edema, orthropnea, palpitations Respiratory: PRESENT: as per HPI Gastrointestinal: PRESENT: as per HPI Genitourinary: PRESENT: as per HPI Musculoskeletal: PRESENT: back pain Physical Exam Vital Signs: Temp Pulse Resp BP Pulse Ox 97.6 F 28 H 106/77 96 08/29/18 14:28 08/29/18 15:31 08/29/18 15:31 08/29/18 15:31 Intake & Output 08/28/18 08/29/18 08/30/18 06:59 06:59 06:59 Intake Total 236 Balance 236 Weight 92.3 kg General appearance: PRESENT: mild distress Head exam: PRESENT: atraumatic, normocephalic Eye exam: PRESENT: conjunctiva pink, EOMI, PERRLA. ABSENT: scleral icterus Ear exam: PRESENT: normal external ear exam Neck exam: ABSENT: carotid bruit, JVD, lymphadenopathy, thyromegaly Respiratory exam: PRESENT: accessory muscle use Cardiovascular exam: PRESENT: RRR. ABSENT: diastolic murmur, rubs, systolic murmur GI/Abdominal exam: PRESENT: normal bowel sounds, soft. ABSENT: distended, guarding, mass, organolmegaly, rebound, tenderness Extremities exam: PRESENT: full ROM. ABSENT: calf tenderness, clubbing, pedal edema Neurological exam: PRESENT: alert, awake, oriented to person, oriented to place , oriented to time, oriented to situation, CN II-XII grossly intact. ABSENT: motor sensory deficit Skin exam: PRESENT: dry, intact, warm, other - Tattoos. ABSENT: cyanosis, rash Results Laboratory Results: 08/29/18 14:35 10/11/18 14:35 08/29/18 08/29/18 08/29/18 14:35 14:35 14:35 WBC 14.5 H RBC 4.59 Hgb 14.3 Hct 42.8 MCV 93 MCH 31.1 MCHC 33.3 RDW 14.2 H Plt Count 326 Seg Neutrophils % 60.2 Lymphocytes % 34.7 Monocytes % 3.0 Eosinophils % 1.4 Basophils % 0.7 Absolute Neutrophils 8.7 H Absolute Lymphocytes 5.0 H Absolute Monocytes 0.4 Absolute Eosinophils 0.2 Absolute Basophils 0.1 Carbonic Acid HCO3/H2CO3 Ratio ABG pH ABG pCO2 ABG pO2 ABG HCO3 ABG O2 Saturation ABG Base Excess VBG pH VBG pCO2 VBG HCO3 VBG Base Excess FiO2 Sodium 139.6 Potassium 4.2 Chloride 103 Carbon Dioxide 22 Anion Gap 15 BUN 15 Creatinine 0.68 Est GFR ( Amer) > 60 Est GFR (Non-Af Amer) > 60 Glucose 171 H Lactic Acid 3.0 H Calcium 9.4 Total Bilirubin 0.6 AST 99 H ALT 64 H Alkaline Phosphatase 73 Total Protein 7.7 Albumin 4.5 Serum HCG, Qual Urine Color Urine Appearance Urine pH Ur Specific [employer] Urine Protein Urine Glucose (UA) Urine Ketones Urine Blood Urine Nitrite Ur Leukocyte Esterase Urine WBC (Auto) Urine RBC (Auto) 08/29/18 08/29/18 08/29/18 14:35 14:35 15:55 WBC RBC Hgb Hct MCV MCH MCHC RDW Plt Count Seg Neutrophils % Lymphocytes % Monocytes % Eosinophils % Basophils % Absolute Neutrophils Absolute Lymphocytes Absolute Monocytes Absolute Eosinophils Absolute Basophils Carbonic Acid HCO3/H2CO3 Ratio ABG pH ABG pCO2 ABG pO2 ABG HCO3 ABG O2 Saturation ABG Base Excess VBG pH 7.28 L VBG pCO2 49.5 VBG HCO3 22.7 VBG Base Excess -4.4 FiO2 Sodium Potassium Chloride Carbon Dioxide Anion Gap BUN Creatinine Est GFR ( Amer) Est GFR (Non-Af Amer) Glucose Lactic Acid Calcium Total Bilirubin AST ALT Alkaline Phosphatase Total Protein Albumin Serum HCG, Qual NEGATIVE Urine Color YELLOW Urine Appearance CLOUDY Urine pH 5.0 Ur Specific [employer] 1.027 Urine Protein 30 H Urine Glucose (UA) NEGATIVE Urine Ketones NEGATIVE Urine Blood NEGATIVE Urine Nitrite NEGATIVE Ur Leukocyte Esterase MODERATE H Urine WBC (Auto) 27 Urine RBC (Auto) 1 08/29/18 17:23 WBC RBC Hgb Hct MCV MCH MCHC RDW Plt Count Seg Neutrophils % Lymphocytes % Monocytes % Eosinophils % Basophils % Absolute Neutrophils Absolute Lymphocytes Absolute Monocytes Absolute Eosinophils Absolute Basophils Carbonic Acid 1.77 H HCO3/H2CO3 Ratio 14:1 ABG pH 7.26 L ABG pCO2 58.9 H ABG pO2 107.7 H ABG HCO3 25.5 H ABG O2 Saturation 97.1 ABG Base Excess -2.8 VBG pH VBG pCO2 VBG HCO3 VBG Base Excess FiO2 100% Sodium Potassium Chloride Carbon Dioxide Anion Gap BUN Creatinine Est GFR ( Amer) Est GFR (Non-Af Amer) Glucose Lactic Acid Calcium Total Bilirubin AST ALT Alkaline Phosphatase Total Protein Albumin Serum HCG, Qual Urine Color Urine Appearance Urine pH Ur Specific [employer] Urine Protein Urine Glucose (UA) Urine Ketones Urine Blood Urine Nitrite Ur Leukocyte Esterase Urine WBC (Auto) Urine RBC (Auto) 08/29/18 08/29/18 14:35 14:35 Creatine Kinase 76 CK-MB (CK-2) 1.08 Troponin I < 0.012 NT-Pro-B Natriuret Pep 37 Impressions: Chest X-Ray 08/29/18 00:00 IMPRESSION: Pulmonary edema. Assessment & Plan - Diagnosis (1) Acute respiratory failure with hypoxia and hypercapnia Is this a current diagnosis for this admission?: Yes Plan: Secondary to noncardiogenic pulmonary edema likely due to the unknown substance patient snorted. She did respond to Narcan and appears to be awake and alert currently we will continue BiPAP check ABG in the morning and tonight at 10:00. If patient hypercapnia or hypoxemia does not improve may require mechanical ventilation but at this time patient is comfortable on BiPAP (2) Non-cardiogenic pulmonary edema Is this a current diagnosis for this admission?: Yes Plan: Admit patient to the medical intensive care unit continue BiPAP. ABG at 10 AM may need adjustment on the BiPAP if patient decompensates will require mechanical ventilation. Despite elevated white count this does not appear to be a bilateral pneumonia. Blood cultures were done in the emergency room lactic acid was 3 but this is a result of her narcotic arrest. Will obtain another lactic acid patient does not have sepsis (3) Chronic pain disorder Is this a current diagnosis for this admission?: Yes Plan: Has led patient to become opioid abuser she denies addiction denies use of IV illicit drugs. Claims she uses Percocet a few times a month only. (4) Overdose of opiate or related narcotic Qualifiers: Encounter type: initial encounter Injury intent: accidental or unintentional Qualified Code(s): T40.601A - Poisoning by unspecified narcotics , accidental (unintentional), initial encounter Plan: Snorted an unknown substance. Was told it was Percocet but could be anything from fentanyl car fentanyl heroin. 10 urine drug screen (5) Urinary tract infection Qualifiers: Urinary tract infection type: site unspecified Hematuria presence: without hematuria Qualified Code(s): N39.0 - Urinary tract infection, site not specified Is this a current diagnosis for this admission?: Yes Plan: Continue Levaquin for now await cultures. - Time Time Spent: 50 to 70 Minutes - Inpatient Certification Based on my medical assessment, after consideration of the patient's comorbidities, presenting symptoms, or acuity I expect that the services needed warrant INPATIENT care.: Yes I certify that my determination is in accordance with my understanding of Medicare's requirements for reasonable and necessary INPATIENT services [42 CFR 412.3e].: Yes Medical Necessity: Need Close Monitoring Due to Risk of Patient Decompensation, Need For Continuous Telemetry Monitoring
--- NOTE | 2018-08-29 22:34 | EKG REPORT ---
SEVERITY:- BORDERLINE ECG - SINUS TACHYCARDIA BORDERLINE T WAVE ABNORMALITIES : Confirmed by: María Lala MD 29-Aug-2018 22:33:27
[2018-08-29 22:55] LABS: ARTERIAL BLOOD BASE EXCESS -3.6 mmol/L; ARTERIAL BLOOD FIO2 75%; ARTERIAL BLOOD H2CO3 1.69 mmol/L (1.05-1.35); ARTERIAL BLOOD HCO3 24.3 mmol/L (20-24); ARTERIAL BLOOD O2 SATURATION 97.6 % (94-98); ARTERIAL BLOOD PH 7.26 (7.35-7.45); ARTERIAL BLOOD PO2 116.1 mmHg (80-100)
[2018-08-30] MEDS ORDERED: NORMAL SALINE 1000 ML 1,000 ML IV ONE (02:30)
[2018-08-30 04:35] LABS: ABSOLUTE BASOPHILS # (AUTO) 0.1 10^3/uL (0.0-0.2); ABSOLUTE EOSINOPHILS # (AUTO) 0.1 10^3/uL (0.0-0.6); ABSOLUTE LYMPHOCYTES (AUTO) 2.3 10^3/uL (0.5-4.7); ABSOLUTE MONOCYTES (AUTO) 0.5 10^3/uL (0.1-1.4); ABSOLUTE NEUT (AUTO) 16.5 10^3/uL (1.7-8.2); BASOPHILS % (AUTO) 0.5 % (0-2); EOSINOPHILS % (AUTO) 0.8 % (0-6); HEMATOCRIT 37.5 % (36.0-47.0); HEMOGLOBIN 12.7 g/dL (12.0-15.5); LYMPHOCYTES % (AUTO) 11.6 % (13-45); MEAN CORPUSCULAR HEMOGLOBIN 30.9 pg (27.0-33.4); MEAN CORPUSCULAR HGB CONC 33.8 g/dL (32.0-36.0); MEAN CORPUSCULAR VOLUME 92 fl (80-97); MONOCYTES % (AUTO) 2.5 % (3-13); PLATELET COUNT 181 10^3/uL (150-450); RED BLOOD COUNT 4.09 10^6/uL (3.72-5.28); RED CELL DISTRIBUTION WIDTH 13.8 % (11.5-14.0); SEGMENTED NEUTROPHILS % (AUTO) 84.6 % (42-78); TOTAL CELLS COUNTED % (AUTO) 100 %; WHITE BLOOD COUNT 19.5 10^3/uL (4.0-10.5)
[2018-08-30 06:29] LABS: ALANINE AMINOTRANSFERASE 51 U/L (9-52); ALBUMIN 3.2 g/dL (3.5-5.0); ALKALINE PHOSPHATASE 54 U/L (38-126); ASPARTATE AMINO TRANSFERASE 52 U/L (14-36); BILIRUBIN,DIRECT 0.3 mg/dL (0.0-0.4); BILIRUBIN,TOTAL 0.7 mg/dL (0.2-1.3); BLOOD UREA NITROGEN 12 mg/dL (7-20); CALCIUM 8.2 mg/dL (8.4-10.2); GLUCOSE 109 mg/dL (75-110); POTASSIUM 4.2 mmol/L (3.6-5.0); TOTAL PROTEIN 5.8 g/dL (6.3-8.2)
--- NOTE | 2018-08-30 06:32 | RADIOLOGY REPORT (SQ) ---
EXAM DESCRIPTION: XR CHEST 1 VIEW COMPLETED DATE/TME: 08/30/2018 06:00 CLINICAL HISTORY: 32 years, Female, Pulmonary edema COMPARISON: 08/29/2018 NUMBER OF VIEWS: One TECHNIQUE: AP view the chest LIMITATIONS: None. FINDINGS: Grossly stable diffuse interstitial and airspace opacities. The heart size is stable. Bilateral pleural effusions may be present. There is no pneumothorax. The bones are unchanged. IMPRESSION: Grossly stable diffuse interstitial and airspace opacities 2010 [email or web address] [employer]- All Rights Reserved
[2018-08-30 06:35] LABS: ANION GAP 6 (5-19); CARBON DIOXIDE 25 mmol/L (22-30); CHLORIDE 108 mmol/L (98-107)
[2018-08-30 07:04] LABS: ARTERIAL BLOOD BASE EXCESS -1.6 mmol/L; ARTERIAL BLOOD H2CO3 1.69 mmol/L (1.05-1.35); ARTERIAL BLOOD HCO3 25.9 mmol/L (20-24); ARTERIAL BLOOD O2 SATURATION 92.1 % (94-98); ARTERIAL BLOOD PCO2 56.1 mmHg (35-45); ARTERIAL BLOOD PH 7.28 (7.35-7.45); ARTERIAL BLOOD PO2 71.2 mmHg (80-100); ARTERIAL BLOOD TOTAL CO2 27.7 mmol/L (21-25)
[2018-08-30 07:06] LABS: ARTERIAL BLOOD FIO2 60%
[2018-08-30] MEDS ORDERED: ONDANSETRON HCL INJ/PF 4 MG/2 ML SDV IV PRN (08:30)
--- NOTE | 2018-08-30 09:23 | EKG REPORT ---
SEVERITY:- BORDERLINE ECG - SINUS TACHYCARDIA PROBABLE LEFT ATRIAL ABNORMALITY BORDERLINE PROLONGED QT INTERVAL : Confirmed by: María Lala MD 30-Aug-2018 09:22:53
[2018-08-30] MEDS ORDERED: PROPOFOL 1,000 MG/100 ML INFUS..BTL IV ONE (09:44)
[2018-08-30] MEDS: PROPOFOL 1,000 MG/100 ML INFUS..BTL IV PRN ×3 (10:00→17:57)
[2018-08-30] MEDS ORDERED: POTASSIUM CHLORIDE 10 MEQ CAPSULE.ER PO SCH (10:00)
[2018-08-30] MEDS ORDERED: FUROSEMIDE INJ/PF 20 MG/2 ML SDV IV SCH (10:00)
[2018-08-30] MEDS ORDERED: MIDAZOLAM HCL 50 MG/100 ML RTUINJ ONE (10:06)
[2018-08-30] MEDS ORDERED: LEVALBUTEROL HCL NEB 1.25 MG/3 ML AMPUL NEB PRN (10:12)
[2018-08-30] MEDS ORDERED: PHARMACY COMMUNICATION ORDER MC NR (10:15)
[2018-08-30] MEDS ORDERED: PROPOFOL INJ 200 MG/20 ML VIAL IV ONE (10:18)
[2018-08-30] MEDS ORDERED: FAMOTIDINE INJ/PF 20 MG/2 ML SDV IV SCH (10:40)
[2018-08-30] MEDS ORDERED: DEXAMETHASONE SOD PHOS INJ 10 MG/1 ML VIAL IV ONE (10:40)
[2018-08-30 10:55] LABS: ARTERIAL BLOOD BASE EXCESS -4.4 mmol/L; ARTERIAL BLOOD H2CO3 1.47 mmol/L (1.05-1.35); ARTERIAL BLOOD HCO3 22.6 mmol/L (20-24); ARTERIAL BLOOD O2 SATURATION 94.3 % (94-98); ARTERIAL BLOOD PH 7.28 (7.35-7.45); ARTERIAL BLOOD PO2 80.1 mmHg (80-100); ARTERIAL BLOOD TOTAL CO2 24.1 mmol/L (21-25)
[2018-08-30 10:56] LABS: ARTERIAL BLOOD FIO2 100%
[2018-08-30] MEDS ORDERED: CELECOXIB 200 MG CAPSULE PO SCH (11:00)
[2018-08-30] MEDS ORDERED: POTASSIUM CHLORIDE 20 MEQ/15 ML UDCUP ONE (11:14)
[2018-08-30] MEDS: IPRATROPIUM/ALBUTEROL 0.5-2.5 MG/3 ML AMPUL NEB SCH ×2 (11:20→13:25)
--- NOTE | 2018-08-30 11:44 | RADIOLOGY REPORT (SQ) ---
EXAM DESCRIPTION: CHEST SINGLE VIEW COMPLETED DATE/TIME: 08/30/2018 10:41 am REASON FOR STUDY: postintubation COMPARISON: 08/30/2018 EXAM PARAMETERS: NUMBER OF VIEWS: One view. TECHNIQUE: Single frontal radiographic view of the chest acquired. RADIATION DOSE: NA LIMITATIONS: None. FINDINGS: LUNGS AND PLEURA: Pulmonary edema. MEDIASTINUM AND HILAR STRUCTURES: No masses. Contour normal. HEART AND VASCULAR STRUCTURES: Borderline heart size. BONES: No acute findings. HARDWARE: An endotracheal tube has its tip 6 cm above the marley. An NG tube extends to the stomach. OTHER: No other significant finding. IMPRESSION: Borderline heart size. Pulmonary edema. TECHNICAL DOCUMENTATION: JOB ID: [id number] [employer]- All Rights Reserved Reading location - IP/workstation name: [email or web address]
--- NOTE | 2018-08-30 11:48 | RADIOLOGY REPORT (SQ) ---
EXAM DESCRIPTION: KUB/ABDOMEN (SINGLE VIEW) COMPLETED DATE/TIME: 08/30/2018 10:41 am REASON FOR STUDY: Check Placement of NG Tube COMPARISON: None. TECHNIQUE: AP view of the lower thorax and upper abdomen. LIMITATIONS: None. FINDINGS: NG tube is identified with its tip at the level of the mid stomach. IMPRESSION: NG tube with its tip at the level of the mid stomach. TECHNICAL DOCUMENTATION: JOB ID: [id number] [employer]- All Rights Reserved Reading location - IP/workstation name: [email or web address]
[2018-08-30 12:14] LABS: ABSOLUTE EOSINOPHILS # (AUTO) 0.2 10^3/uL (0.0-0.6); ABSOLUTE LYMPHOCYTES (AUTO) 1.5 10^3/uL (0.5-4.7); ABSOLUTE MONOCYTES (AUTO) 0.4 10^3/uL (0.1-1.4); ABSOLUTE NEUT (AUTO) 14.7 10^3/uL (1.7-8.2); BASOPHILS % (AUTO) 0.2 % (0-2); HEMATOCRIT 37.7 % (36.0-47.0); HEMOGLOBIN 12.6 g/dL (12.0-15.5); LYMPHOCYTES % (AUTO) 9.1 % (13-45); MEAN CORPUSCULAR HEMOGLOBIN 31.1 pg (27.0-33.4); MEAN CORPUSCULAR HGB CONC 33.4 g/dL (32.0-36.0); MEAN CORPUSCULAR VOLUME 93 fl (80-97); MONOCYTES % (AUTO) 2.6 % (3-13); PLATELET COUNT 198 10^3/uL (150-450); RED BLOOD COUNT 4.05 10^6/uL (3.72-5.28); RED CELL DISTRIBUTION WIDTH 13.9 % (11.5-14.0); SEGMENTED NEUTROPHILS % (AUTO) 87.1 % (42-78); TOTAL CELLS COUNTED % (AUTO) 100 %; WHITE BLOOD COUNT 16.8 10^3/uL (4.0-10.5)
[2018-08-30 12:29] LABS: INTERNATIONAL RATION (INR) 1.07; PARTIAL THROMBOPLASTIN TIME 31.1 SEC (23.5-35.8); PROTHROMBIN TIME 14.4 SEC (11.4-15.4)
[2018-08-30] MEDS ORDERED: ACETAMINOPHEN SOLN 325 MG/10.15 ML UDCUP NG PRN (12:37)
[2018-08-30] MEDS ORDERED: NORMAL SALINE 1000 ML 1,000 ML IV PRN ×2 (12:39→12:40)
[2018-08-30 12:42] LABS: ALANINE AMINOTRANSFERASE 48 U/L (9-52); ALKALINE PHOSPHATASE 55 U/L (38-126); ANION GAP 7 (5-19); ASPARTATE AMINO TRANSFERASE 47 U/L (14-36); BILIRUBIN,DIRECT 0.2 mg/dL (0.0-0.4); BILIRUBIN,TOTAL 0.5 mg/dL (0.2-1.3); BLOOD UREA NITROGEN 10 mg/dL (7-20); CALCIUM 8.4 mg/dL (8.4-10.2); CARBON DIOXIDE 23 mmol/L (22-30); CHLORIDE 108 mmol/L (98-107); GLUCOSE 113 mg/dL (75-110); POTASSIUM 4.1 mmol/L (3.6-5.0); SODIUM 138.3 mmol/L (137-145); TOTAL PROTEIN 5.5 g/dL (6.3-8.2)
[2018-08-30] MEDS ORDERED: SUCCINYLCHOLINE CHLORIDE INJ 200 MG/10 ML VIAL ONE (13:44)
[2018-08-30] MEDS ORDERED: MIDAZOLAM HCL 50 MG/100 ML RTUINJ IV PRN (13:56)
[2018-08-30] MEDS ORDERED: PREGABALIN 75 MG CAPSULE PO SCH (14:00)
[2018-08-30] MEDS ORDERED: PREGABALIN 75 MG CAPSULE NG SCH (14:00)
--- NOTE | 2018-08-30 14:03 | PDOC TRANSFER SUMMARY ---
General Admission Date/PCP: 08/29/18 19:17 MARCOS KWAN MD Admission Date: 08/29/18 Transfer Date: 08/30/18 Accepting Facility: [facility] Accepting Physician: Dr. Mckeon Resuscitation Status: Full Code - Transfer Diagnosis (1) Acute respiratory failure with hypoxia and hypercapnia Is this a current diagnosis for this admission?: Yes Diagnosis Summary: Patient had been placed on BiPAP on admission had a slow decline in her oxygenation with stability in her hypercapnia consult with pulmonary Dr. Haile recommended intubation post intubation patient had pink frothy sputum consistent with the pulmonary edema was given Decadron empirically. Concern for ARDS developing (2) Non-cardiogenic pulmonary edema Is this a current diagnosis for this admission?: Yes Diagnosis Summary: She is initiated on empiric Levaquin for possible underlying pneumonitis. Clinical picture is that of noncardiogenic pulmonary edema. If blood cultures negative consider adjusting antibiotics to cover UTI only as it does not appear to be a pneumonic infection (3) Urinary tract infection Is this a current diagnosis for this admission?: Yes Diagnosis Summary: Cultures positive for gram-negative rods. Patient's prior infections were E. coli with resistance to ampicillin and Unasyn. Currently on Levaquin (4) Overdose of opiate or related narcotic Is this a current diagnosis for this admission?: Yes Diagnosis Summary: Patient snorted powder which she was told was ground up Percocet suffered respiratory arrest and developed pulmonary edema (5) Acute upper gastrointestinal hemorrhage Is this a current diagnosis for this admission?: Yes Diagnosis Summary: Suspected Toshia-Parikh tear hemoglobin stable x2 at 12.7 presenting hemoglobin 14 (6) Chronic pain disorder Is this a current diagnosis for this admission?: Yes - Transfer Medications Home Medications: Pregabalin [Lyrica] 150 mg PO Q8 08/29/18 Transfer Medications: Current Medications Acetaminophen (Tylenol Soln 325 Mg/10.15 Ml Udcup) 650 mg NG Q4HP PRN PRN Reason: FOR PAIN Stop: 09/29/18 12:36 Albuterol/Ipratropium (Duoneb 3 Ml Ampul) 3 ml NEB RTQ6 [facility] Stop: 09/29/18 10:14 Last Admin: 08/30/18 13:25 Dose: 3 ml Famotidine (Pepcid Inj/Pf 20 Mg/2 Ml Sdv) 20 mg IV Q12 [facility] Stop: 09/29/18 10:39 Last Admin: 08/30/18 11:15 Dose: 20 mg Furosemide (Lasix Inj/Pf 20 Mg/2 Ml Sdv) 20 mg IV Q12 [facility] Stop: 09/29/18 09:59 Last Admin: 08/30/18 11:15 Dose: 20 mg Levofloxacin/Dextrose (Levaquin Rtu 750 Mg/D5w 150 Ml Premix) 750 mg in 150 mls @ 100 mls/hr IV QPM [facility] Stop: 09/06/18 17:59 Propofol (Diprivan Rtu 1000 Mg/100 Ml Inf.Bottle) 1,000 mg in 100 mls @ 0 mls/ hr IV CONTINUOUS PRN; Protocol; Titrate PRN Reason: THIS MED IS NOT "PRN" Stop: 09/29/18 10:14 Last Titration: 08/30/18 10:45 Dose: 20.01 mcg/kg/min, 10.95 mls/hr Sodium Chloride (Nacl 0.9% 1000 Ml Iv Soln) 1,000 mls @ 80 mls/hr IV CONTINUOUS PRN PRN Reason: THIS MED IS NOT "PRN" Stop: 09/29/18 12:38 Sodium Chloride (Nacl 0.9% 1000 Ml Iv Soln) 1,000 mls @ 250 mls/hr IV .X1 PRN PRN Reason: THIS MED IS NOT "PRN" Stop: 08/30/18 16:00 Influenza Virus Vaccine Quadrival (Fluarix Adlt Quad 2017- Vac 0.5 Ml Syr) 0.5 ml IM .DISCHARGE PRN PRN Reason: THIS MED IS NOT "PRN" Stop: 09/28/18 21:33 Levalbuterol HCl (Xopenex Neb 1.25 Mg/3 Ml Ampul) 1.25 mg NEB RTQ4HP PRN PRN Reason: SHORTNESS OF BREATH Stop: 09/29/18 10:11 Last Admin: 08/30/18 11:19 Dose: 1.25 mg Naloxone HCl (Narcan Inj 2 Mg/2 Ml Disp.Syrin) 2 mg IV Q2HP PRN PRN Reason: SEE LABEL COMMENTS Stop: 09/05/18 18:34 Ondansetron HCl (Zofran Inj/Pf 4 Mg/2 Ml Sdv) 4 mg IV Q4HP PRN PRN Reason: FOR NAUSEA/VOMITING Stop: 09/28/18 18:23 Pharmacy Profile Note (Medication Communication Order) 1 each [facility] .NOTICE NR Stop: 09/29/18 10:14 Potassium Chloride (Kaon-Cl 20 Meq/15 Ml Udcup) 20 meq NG DAILY [facility] Stop: 09/30/18 09:59 Pregabalin (Lyrica 75 Mg Capsule) 150 mg NG Q8 [facility] Stop: 09/29/18 13:59 Sodium Chloride (Saline Flush 2.5 Ml Monoject Prefil Syrin) 2.5 ml IV Q8 [facility] Stop: 09/28/18 21:59 Last Admin: 08/30/18 05:03 Dose: Not Given - Allergies Allergies/Adverse Reactions: citalopram hydrobromide [From Celexa] Allergy (Verified 04/05/18 16:25) eletriptan [From Relpax] Allergy (Verified 04/05/18 16:25) hydrocodone bitartrate [From Vicodin] Allergy (Verified 04/05/18 16:25) naproxen sodium [From Treximet] Allergy (Verified 04/05/18 16:25) sumatriptan [From Imitrex] Allergy (Verified 04/05/18 16:25) sumatriptan succinate [From Imitrex] Allergy (Verified 04/05/18 16:25) adhesive tape Adverse Reaction (Verified 04/05/18 16:25) - Diet/Activity Discharge Diet: Other (Comments) - Currently n.p.o. Hospital Course Hospital Course: 32-year-old female who presents to the emergency department today with complaints of an overdose prior to arrival. Patient states she snorted what she thought was a Percocet prior to arrival. Patient was found unresponsive with another person in the vehicle according to EMS. Bystanders CPR was administered. Law enforcement arrived first on scene and gave 2 mg of intranasal Narcan. When EMS arrived on scene they also administered 2 more milligrams of intranasal Narcan as the patient was only respirating at 6-8 times a minute after the initial 2 mg of Narcan from law enforcement were given. After the total of 4 mg of intranasal Narcan the patient was saturating 80%. Patient states she snorted the pill to relieve her chronic back pain. In the emergency room patient vomited small amount of blood was given Zofran and had no further emesis or hematemesis. Chest x-ray showed diffuse bilateral fluffy infiltrates consistent with pulmonary edema. She was placed on BiPAP for approximately 2 hours and ABG showed good oxygenation with CO2 retention. She was awake sitting up with pupillary reflexes she did not receive any further Narcan while in the emergency room. Patient states she snorts the Percocet because it gets into her system quicker but she only does this once or twice a month when her pain is severe because she is not receiving treatment. She also self medicates with marijuana denies use of methamphetamines crack cocaine or IV illicit drugs. Her urinalysis was consistent with a UTI. She was initiated on Levaquin for bilateral pneumonia and urinary tract infection. Patient was admitted to the medical intensive care unit on BiPAP. She had as needed Narcan ordered but did not require any further Narcan. Her saturations on BiPAP were maintained above 90% and the oxygen was able to be titrated down to 60%. A consultation with pulmonary was obtained in the morning with Dr. Dupont evaluating the patient. He felt that her x-ray had not improved if anything was looking worse her CO2 retention was slightly worse and her oxygenation and respiratory effort were beginning to deteriorate. He recommended intubation. On intubation patient returned a large amount of bloody frothy sputum consistent with the pulmonary edema. A nasogastric tube was then placed and patient had bright red blood and coffee grounds in her gastric contents. Patient did have some small amount of hematemesis in the emergency room which was felt to be due to Toshia-Parikh tear. She has no history of ulcerations. Her hemoglobin which was 14 at presentation was stable at 12 x 2. Patient's white count which was 19,000 had decreased to 16,000. Urinalysis showed pyuria initial culture report was positive for gram-negative rods. In the past patient has had frequent E. coli infections all of which showed resistance to ampicillin and Unasyn but sensitive to cephalosporins and fluoroquinolones. Patient was empirically started on Levaquin in the emergency room to cover both urinary tract and infection and possible pneumonitis. Her clinical picture is more of noncardiogenic pulmonary edema and less of a pulmonary infection. Sputum cultures and blood cultures are pending. 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 Discussion with Dr. Mckeon of [facility] [place] was obtained he agreed to accept the patient in transfer. Physical Exam Vital Signs: Temp Pulse Resp BP Pulse Ox 98.8 F 94 20 136/84 H 100 08/30/18 12:00 08/30/18 13:25 08/30/18 13:25 08/30/18 12:00 08/30/18 13:25 Intake & Output 08/29/18 08/30/18 08/31/18 06:59 06:59 06:59 Intake Total 1913 15 Output Total 100 400 Balance 1813 -385 Weight 91.2 kg 91.2 kg General appearance: PRESENT: other - Sedated on ventilator Eye exam: PRESENT: conjunctiva pink, EOMI, PERRLA. ABSENT: scleral icterus Mouth exam: PRESENT: other - ET OG in place Respiratory exam: PRESENT: rales - Later support, other Cardiovascular exam: PRESENT: RRR. ABSENT: diastolic murmur, rubs, systolic murmur GI/Abdominal exam: PRESENT: normal bowel sounds, soft. ABSENT: distended, guarding, mass, organolmegaly, rebound, tenderness Musculoskeletal exam: PRESENT: normal inspection Results Laboratory Results: 08/30/18 11:45 08/30/18 11:45 08/29/18 08/30/18 08/30/18 22:44 04:16 04:16 WBC 19.5 H RBC 4.09 Hgb 12.7 Hct 37.5 MCV 92 MCH 30.9 MCHC 33.8 RDW 13.8 Plt Count 181 Seg Neutrophils % 84.6 H Lymphocytes % 11.6 L Monocytes % 2.5 L Eosinophils % 0.8 Basophils % 0.5 Absolute Neutrophils 16.5 H Absolute Lymphocytes 2.3 Absolute Monocytes 0.5 Absolute Eosinophils 0.1 Absolute Basophils 0.1 Carbonic Acid 1.69 H HCO3/H2CO3 Ratio 14:1 ABG pH 7.26 L ABG pCO2 56.0 H ABG pO2 116.1 H ABG HCO3 24.3 H ABG O2 Saturation 97.6 ABG Base Excess -3.6 FiO2 75% Sodium Cancelled Potassium Cancelled Chloride Cancelled Carbon Dioxide Cancelled Anion Gap Cancelled BUN Cancelled Creatinine Cancelled Est GFR ( Amer) Cancelled Est GFR (Non-Af Amer) Cancelled Glucose Cancelled Calcium Cancelled Total Bilirubin Cancelled AST Cancelled ALT Cancelled Alkaline Phosphatase Cancelled Total Protein Cancelled Albumin Cancelled TSH 08/30/18 08/30/18 08/30/18 04:16 06:05 06:05 WBC RBC Hgb Hct MCV MCH MCHC RDW Plt Count Seg Neutrophils % Lymphocytes % Monocytes % Eosinophils % Basophils % Absolute Neutrophils Absolute Lymphocytes Absolute Monocytes Absolute Eosinophils Absolute Basophils Carbonic Acid HCO3/H2CO3 Ratio ABG pH ABG pCO2 ABG pO2 ABG HCO3 ABG O2 Saturation ABG Base Excess FiO2 Sodium 139.0 Potassium 4.2 Chloride 108 H Carbon Dioxide 25 Anion Gap 6 BUN 12 Creatinine 0.46 L Est GFR ( Amer) > 60 Est GFR (Non-Af Amer) > 60 Glucose 109 Calcium 8.2 L Total Bilirubin 0.7 AST 52 H ALT 51 Alkaline Phosphatase 54 Total Protein 5.8 L Albumin 3.2 L TSH Cancelled 0.46 L 08/30/18 08/30/18 08/30/18 06:45 10:30 11:45 WBC 16.8 H RBC 4.05 Hgb 12.6 Hct 37.7 MCV 93 MCH 31.1 MCHC 33.4 RDW 13.9 Plt Count 198 Seg Neutrophils % 87.1 H Lymphocytes % 9.1 L Monocytes % 2.6 L Eosinophils % 1.0 Basophils % 0.2 Absolute Neutrophils 14.7 H Absolute Lymphocytes 1.5 Absolute Monocytes 0.4 Absolute Eosinophils 0.2 Absolute Basophils 0.0 Carbonic Acid 1.69 H 1.47 H HCO3/H2CO3 Ratio 15:1 15:1 ABG pH 7.28 L 7.28 L ABG pCO2 56.1 H 49.0 H ABG pO2 71.2 L 80.1 ABG HCO3 25.9 H 22.6 ABG O2 Saturation 92.1 L 94.3 ABG Base Excess -1.6 -4.4 FiO2 60% 100% Sodium Potassium Chloride Carbon Dioxide Anion Gap BUN Creatinine Est GFR ( Amer) Est GFR (Non-Af Amer) Glucose Calcium Total Bilirubin AST ALT Alkaline Phosphatase Total Protein Albumin TSH 08/30/18 11:45 WBC RBC Hgb Hct MCV MCH MCHC RDW Plt Count Seg Neutrophils % Lymphocytes % Monocytes % Eosinophils % Basophils % Absolute Neutrophils Absolute Lymphocytes Absolute Monocytes Absolute Eosinophils Absolute Basophils Carbonic Acid HCO3/H2CO3 Ratio ABG pH ABG pCO2 ABG pO2 ABG HCO3 ABG O2 Saturation ABG Base Excess FiO2 Sodium 138.3 Potassium 4.1 Chloride 108 H Carbon Dioxide 23 Anion Gap 7 BUN 10 Creatinine 0.49 L Est GFR ( Amer) > 60 Est GFR (Non-Af Amer) > 60 Glucose 113 H Calcium 8.4 Total Bilirubin 0.5 AST 47 H ALT 48 Alkaline Phosphatase 55 Total Protein 5.5 L Albumin 3.0 L TSH Impressions: Chest X-Ray 08/30/18 06:00 IMPRESSION: Grossly stable diffuse interstitial and airspace opacities 2010 [employer]- All Rights Reserved KUB X-Ray 08/30/18 10:15 IMPRESSION: NG tube with its tip at the level of the mid stomach. Plan Time Spent: Greater than 30 Minutes
[2018-08-30] MEDS ORDERED: LEVOFLOXACIN 750 MG/D5W RTU 750 MG/150 ML RTUPB IV SCH (18:00)
[2018-08-30 18:15] VITALS: BP 112/70
[2018-08-31] MEDS ORDERED: POTASSIUM CHLORIDE 20 MEQ/15 ML UDCUP NG SCH (10:00)
--- NOTE | 2018-09-02 14:18 | PDOC CONSULTATION ---
Consultation Consult Date: 08/30/18 Attending physician:: VÍCTOR PETER Consult reason:: resp failure History of Present Illness Admission Date/PCP: 08/29/18 19:17 MARCOS KWAN MD History of Present Illness: FERNIE LESLIE is a 32 year old female substance which she felt was Percocet been complaining of progressive shortness of breath over the last 10 hours and is currently on BiPAP with a rate of 37. Asked patient to be intubated at which time copious amounts of blood secretions were coming out of the ET tube as well as NG tube. Ventilation was adequate but it was difficult oxygenate the patient despite being 100% FiO2 discussed with primary care physician and it was opted to seek a tertiary care bed for patient's care Past Medical History Neurological Medical History: Reports: Migraine Musculoskeltal Medical History: Reports: Arthritis, Other - Neck pain bilateral paresthesias lumbago Past Surgical History Past Surgical History: Reports: Orthopedic Surgery - Rt shoulder; Lt knee x2 Social History Lives with: Family Smoking Status: Current Every Day Smoker Cigarettes Packs Per Day: 0.5 Cigars Per Day: 0 Pipes Per Day: 0 Number of Years Smokin Last Time Smoked: 08/29/18 Frequency of Alcohol Use: None Hx Recreational Drug Use: Yes Drugs: Heroin, Marijuana, Other Hx Prescription Drug Abuse: No - Pt denies Family History Family History: Hypertension, Other - Adopted Parental Family History Reviewed: Yes Children Family History Reviewed: Yes Sibling(s) Family History Reviewed.: Yes Medication/Allergy Home Medications: Pregabalin [Lyrica] 150 mg PO Q8 08/29/18 Acetaminophen [Tylenol Soln 325 mg/10.15 ml Udcup] 650 mg NG Q4HP PRN udc 08/30 Celecoxib [Celecoxib] 200 mg PO Q12 08/30/18 Famotidine/Pf [Pepcid Inj/Pf 20 mg/2 ml Sdv] 20 mg IV Q12 vial 08/30/18 Flu Vacc [id number](6Mos Up)/Pf [Fluarix Adlt Quad Vac 0.5 ml Syr] 0.5 ml IM .DISCHARGE PRN syringe 08/30/18 Furosemide [Lasix Inj/Pf 20 mg/2 ml Sdv] 20 mg IV Q12 vial 08/30/18 Ipratropium/Albuterol Sulfate [Duoneb 3 ml Ampul] 3 ml NEB RTQ6 vial.neb Levalbuterol HCl [Xopenex Neb 1.25 mg/3 ml Ampul] 1.25 mg NEB RTQ4HP PRN vial.neb 08/30/18 Naloxone HCl [Narcan Inj 2 mg/2 ml Disp.syrin] 2 mg IV Q2HP PRN disp.syrin 11/05 Normal Saline [Saline Flush 2.5 ml Monoject Prefil Syrin] 2.5 ml IV Q8 disp.syrin 08/30/18 Nortriptyline HCl [Pamelor] 50 mg PO QHS 08/30/18 Ondansetron HCl/Pf [Zofran Inj/Pf 4 mg/2 ml Sdv] 4 mg IV Q4HP PRN vial Potassium Chloride [Kaon-Cl 20 Meq/15 ml Udcup] 20 meq NG DAILY udc 08/30/18 Sertraline HCl [Sertraline HCl] 150 mg PO QAM 08/30/18 Topiramate [Topiramate] 100 mg PO QHS 08/30/18 Allergies/Adverse Reactions: citalopram hydrobromide [From Celexa] Allergy (Verified 04/05/18 16:25) eletriptan [From Relpax] Allergy (Verified 04/05/18 16:25) hydrocodone bitartrate [From Vicodin] Allergy (Verified 04/05/18 16:25) naproxen sodium [From Treximet] Allergy (Verified 04/05/18 16:25) sumatriptan [From Imitrex] Allergy (Verified 04/05/18 16:25) sumatriptan succinate [From Imitrex] Allergy (Verified 04/05/18 16:25) adhesive tape Adverse Reaction (Verified 04/05/18 16:25) Review of Systems ROS unobtainable: Due to mental status Physical Exam Vital Signs: Temp Pulse Resp BP Pulse Ox 97.0 F 92 32 H 107/64 95 08/30/18 08:00 08/30/18 08:00 08/30/18 08:00 08/30/18 08:00 08/30/18 08:00 Intake & Output 08/29/18 08/30/18 08/31/18 06:59 06:59 06:59 Intake Total 1913 Output Total 100 Balance 1813 Weight 91.2 kg General appearance: PRESENT: cooperative, disheveled, morbidly obese, severe distress, well-developed, well-nourished Head exam: PRESENT: atraumatic, normocephalic Eye exam: PRESENT: conjunctiva pale, EOMI. ABSENT: nystagmus, periorbital swelling, scleral icterus Mouth exam: PRESENT: dry mucosa, neck supple, tongue midline, other - Debated ET tube in place Neck exam: ABSENT: carotid bruit, JVD, lymphadenopathy, thyromegaly, tracheal deviation, tracheostomy Respiratory exam: PRESENT: crackles, decreased breath sounds, prolonged expiratory phas, rhonchi, symmetrical, tachypnea, unlabored, wheezes. ABSENT: retraction, stridor Cardiovascular exam: PRESENT: RRR, +S1, +S2, tachycardia Pulses: PRESENT: normal radial pulses GI/Abdominal exam: PRESENT: soft. ABSENT: tenderness Gentrourinary exam: PRESENT: indwelling catheter Extremities exam: ABSENT: calf tenderness, clubbing, joint swelling Musculoskeletal exam: ABSENT: ambulatory, deformity, dislocation Neurological exam: PRESENT: altered, awake Psychiatric exam: PRESENT: flat affect Skin exam: PRESENT: dry, warm Results Laboratory Results: 08/30/18 04:16 08/30/18 06:05 08/29/18 08/30/18 08/30/18 22:44 04:16 04:16 WBC 19.5 H RBC 4.09 Hgb 12.7 Hct 37.5 MCV 92 MCH 30.9 MCHC 33.8 RDW 13.8 Plt Count 181 Seg Neutrophils % 84.6 H Lymphocytes % 11.6 L Monocytes % 2.5 L Eosinophils % 0.8 Basophils % 0.5 Absolute Neutrophils 16.5 H Absolute Lymphocytes 2.3 Absolute Monocytes 0.5 Absolute Eosinophils 0.1 Absolute Basophils 0.1 Carbonic Acid 1.69 H HCO3/H2CO3 Ratio 14:1 ABG pH 7.26 L ABG pCO2 56.0 H ABG pO2 116.1 H ABG HCO3 24.3 H ABG O2 Saturation 97.6 ABG Base Excess -3.6 FiO2 75% Sodium Cancelled Potassium Cancelled Chloride Cancelled Carbon Dioxide Cancelled Anion Gap Cancelled BUN Cancelled Creatinine Cancelled Est GFR ( Amer) Cancelled Est GFR (Non-Af Amer) Cancelled Glucose Cancelled Calcium Cancelled Total Bilirubin Cancelled AST Cancelled ALT Cancelled Alkaline Phosphatase Cancelled Total Protein Cancelled Albumin Cancelled TSH 08/30/18 08/30/18 08/30/18 04:16 06:05 06:05 WBC RBC Hgb Hct MCV MCH MCHC RDW Plt Count Seg Neutrophils % Lymphocytes % Monocytes % Eosinophils % Basophils % Absolute Neutrophils Absolute Lymphocytes Absolute Monocytes Absolute Eosinophils Absolute Basophils Carbonic Acid HCO3/H2CO3 Ratio ABG pH ABG pCO2 ABG pO2 ABG HCO3 ABG O2 Saturation ABG Base Excess FiO2 Sodium 139.0 Potassium 4.2 Chloride 108 H Carbon Dioxide 25 Anion Gap 6 BUN 12 Creatinine 0.46 L Est GFR ( Amer) > 60 Est GFR (Non-Af Amer) > 60 Glucose 109 Calcium 8.2 L Total Bilirubin 0.7 AST 52 H ALT 51 Alkaline Phosphatase 54 Total Protein 5.8 L Albumin 3.2 L TSH Cancelled 0.46 L 08/30/18 06:45 WBC RBC Hgb Hct MCV MCH MCHC RDW Plt Count Seg Neutrophils % Lymphocytes % Monocytes % Eosinophils % Basophils % Absolute Neutrophils Absolute Lymphocytes Absolute Monocytes Absolute Eosinophils Absolute Basophils Carbonic Acid 1.69 H HCO3/H2CO3 Ratio 15:1 ABG pH 7.28 L ABG pCO2 56.1 H ABG pO2 71.2 L ABG HCO3 25.9 H ABG O2 Saturation 92.1 L ABG Base Excess -1.6 FiO2 60% Sodium Potassium Chloride Carbon Dioxide Anion Gap BUN Creatinine Est GFR ( Amer) Est GFR (Non-Af Amer) Glucose Calcium Total Bilirubin AST ALT Alkaline Phosphatase Total Protein Albumin TSH Impressions: Chest X-Ray 08/30/18 06:00 IMPRESSION: Grossly stable diffuse interstitial and airspace opacities 2010 [facility]- All Rights Reserved Assessment & Plan - Diagnosis (1) Acute respiratory failure with hypoxia and hypercapnia Is this a current diagnosis for this admission?: Yes Plan: Ventilate and oxygenate adequate pH and SaO2 (2) Acute upper gastrointestinal hemorrhage Is this a current diagnosis for this admission?: Yes Plan: H2 blockers needs EGD per GI medicine (3) Pneumonia Qualifiers: Pneumonia type: due to unspecified organism Laterality: bilateral Lung location: unspecified part of lung Qualified Code(s): J18.9 - Pneumonia, unspecified organism Is this a current diagnosis for this admission?: Yes Plan: aspiration pneumonia plus or minus chemical pneumonitis - Time Total Critical Time (Minutes): 70
== END 2018-08-30 17:55 | disposition short-term general hospital (02) | DRG 917 ==
LOC: ER 14:04 → EH 19:17 → ICU 20:40
PROVIDERS: ADMIT Internal Medicine; ATTEND Internal Medicine
PROC: 5A1935Z Respiratory Ventilation, Less than 24 Consecutive Hours (ICD-10-PCS; principal; 2018-08-30)
PROC: 0BH17EZ Insertion of Endotracheal Airway into Trachea, Via Natural or Artificial Opening (ICD-10-PCS; 2018-08-30)
DX: T40.2X1A Poisoning by other opioids, accidental (unintentional), initial encounter (principal); J96.01 Acute respiratory failure with hypoxia; J96.02 Acute respiratory failure with hypercapnia; J81.0 Acute pulmonary edema; K22.6 Gastro-esophageal laceration-hemorrhage syndrome; N39.0 Urinary tract infection, site not specified; K92.0 Hematemesis; F11.10 Opioid abuse, uncomplicated; G89.4 Chronic pain syndrome; G43.909 Migraine, unspecified, not intractable, without status migrainosus; M54.5 Low back pain; M54.2 Cervicalgia; Y92.413 State road as the place of occurrence of the external cause; F17.210 Nicotine dependence, cigarettes, uncomplicated; Z87.440 Personal history of urinary (tract) infections; Z82.49 Family history of ischemic heart disease and other diseases of the circulatory system; Z79.899 Other long term (current) drug therapy; Z88.8 Allergy status to other drugs, medicaments and biological substances; Z88.6 Allergy status to analgesic agent
CPT/HCPCS: 36415; 71045; 74018; 80053; 80307; 81001; 82271; 82550; 82553; 82803; 83036; 83605; 83880; 84443; 84484; 84703; 85025; 85610; 85730; 87040; 87070; 87086; 87088; 87186; 87205; 93005; 93010; 94002; 94640; 94660; 96361; 96365; 96366; 96375; 99291; J0330; J1100; J1940; J1956; J2250; J2405; J2704; J3490; J7030; J7620; S0028

== ENCOUNTER 2019-01-02 14:55 | Emergency (ER) | payer BC ==
[2019-01-02 15:13] VITALS: BP 139/81
--- NOTE | 2019-01-02 15:21 | ER Document Report ---
HPI - HPI Patient complains to provider of: finger pain Time Seen by Provider: 01/02/19 15:06 Onset: Other - months Onset/Duration: Persistent Quality of pain: Achy Severity: Severe Pain Level: 5 Context: Resents to emergency department with complaints of mass in her pinky on her right hand. Patient is left-hand dominant. Patient reports burning and sharp pain swelling and tender. She reports decreased range of motion. Patient also reports this swelling has been going on for months but only recently started hurting. She was evaluated recently with x-rays at [facility]. They told her there was nothing there so she came here. Denies trauma. No other complaints such as fever vomiting diarrhea. Reports she has a type a lot in it hurts. Associated Symptoms: None Exacerbated by: Movement Relieved by: Denies Similar symptoms previously: Yes Recently seen / treated by doctor: Yes - REPRODUCTIVE Reproductive: DENIES: : Past Medical History - General Information source: Patient - Social History Smoking Status: Unknown if Ever Smoked Family History: Hypertension, Other - Adopted Neurological Medical History: Reports: Hx Migraine Renal/ Medical History: Denies: Hx Peritoneal Dialysis Musculoskeletal Medical History: Reports Hx Arthritis, Reports Hx Musculoskeletal Deformity, Reports Hx Musculoskeletal Trauma Psychiatric Medical History: Reports: Hx Anxiety Traumatic Medical History: Reports: Hx Traumatic Brain Injury Past Surgical History: Reports: Hx Orthopedic Surgery - Rt shoulder; Lt knee x2 - Immunizations Immunizations up to date: Yes Hx Diphtheria, Pertussis, Tetanus Vaccination: Yes Vertical Provider Document - CONSTITUTIONAL Agree With Documented VS: Yes Exam Limitations: No Limitations General Appearance: WD/WN, No Apparent Distress - INFECTION CONTROL TRAVEL OUTSIDE OF THE [place] IN LAST 30 DAYS: No - HEENT HEENT: Atraumatic - NECK Neck: Supple - RESPIRATORY Respiratory: No Respiratory Distress - CARDIOVASCULAR Cardiovascular: Regular Rate - MUSCULOSKELETAL/EXTREMETIES Musculoskeletal/Extremeties: Tender - right palmar DIP firmness, no erythema, good cap refill, extends without c/o reports decreased flexion. - NEURO Level of Consciousness: Awake, Alert, Appropriate Motor/Sensory: No Motor Deficit - DERM Integumentary: Warm, Dry Course - Re-evaluation Re-evalutation: 01/02/19 16:15 Patient instructed on negative finger x-ray. Patient instructed on the importance of follow-up with orthopedic for further evaluation. The area has no erythema, no s/s tenosynovitis. - Vital Signs Vital signs: Temp Pulse Resp BP Pulse Ox 98.0 F 76 17 139/81 H 98 01/02/19 15:12 01/02/19 15:12 01/02/19 15:12 01/02/19 15:12 01/02/19 15:12 - Diagnostic Test Radiology reviewed: Image reviewed, Reports reviewed - Exam Information Accession Number: [id number] Modality: CR Body Part: RFINGERS Description: FINGER RIGHT Performed Date: 01/02/2019 15:28:56 Reason for Study: ITS.REASON Final Report EXAM DESCRIPTION: FINGER RIGHT COMPLETED DATE/TIME: 01/02/2019 3:45 pm REASON FOR STUDY: 5th finger palm swelling pain COMPARISON: None. NUMBER OF VIEWS: Three views. TECHNIQUE: AP, lateral, and oblique images acquired of the right fifth finger. LIMITATIONS: None. FINDINGS: MINERALIZATION: Normal. BONES: No acute fracture or dislocation. No worrisome bone lesions. SOFT TISSUES: No soft tissue swelling. No foreign body. OTHER: No other significant finding. IMPRESSION: No radiographic abnormality of the right 5th digit. COMMENT: SITE OF TRAUMA/COMPLAINT MARKED/STAMP COMPLETED: YES. TECHNICAL DOCUMENTATION: JOB ID: [id number] [facility]- All Rights Reserved Reading location - IP/workstation name: [email or web address] Dictated by: ROSALIA FRIAS MD [id number] CC: KAREN RODRÍGUEZ NP > Discharge - Discharge Clinical Impression: right 5th finger pain Condition: Stable Disposition: HOME, SELF-CARE Additional Instructions: *You have been evaluated for right pinky pain and swelling *Your xray was negative for a fracture *Take tylenol or motrin as indicated for pain *Monitor the site for signs of infection such as increasing pain, redness, swelling, warmth *Follow up with a primary care provider within one week for recheck and referral to orthopedics *Return to ED for signs of infection, worsening condition, changes, needs Referrals: MARCOS KWAN MD [Primary Care Provider] - Follow up in 1 week
--- NOTE | 2019-01-02 15:53 | RADIOLOGY REPORT (SQ) ---
EXAM DESCRIPTION: FINGER RIGHT COMPLETED DATE/TIME: 01/02/2019 3:45 pm REASON FOR STUDY: 5th finger palm swelling pain COMPARISON: None. NUMBER OF VIEWS: Three views. TECHNIQUE: AP, lateral, and oblique images acquired of the right fifth finger. LIMITATIONS: None. FINDINGS: MINERALIZATION: Normal. BONES: No acute fracture or dislocation. No worrisome bone lesions. SOFT TISSUES: No soft tissue swelling. No foreign body. OTHER: No other significant finding. IMPRESSION: No radiographic abnormality of the right 5th digit. COMMENT: SITE OF TRAUMA/COMPLAINT MARKED/STAMP COMPLETED: YES. TECHNICAL DOCUMENTATION: JOB ID: [id number] [employer]- All Rights Reserved Reading location - IP/workstation name: [email or web address]
== END 2019-01-02 16:14 | disposition home or self-care (01) ==
LOC: ER 14:55
DX: M79.644 Pain in right finger(s) (principal); M79.89 Other specified soft tissue disorders
CPT/HCPCS: 99283

== ENCOUNTER 2019-02-19 10:09 | Emergency (ER) | payer BC ==
--- NOTE | 2019-02-19 10:35 | ER Document Report ---
ED Medical Screen (RME) - General Chief Complaint: Facial Swelling Stated Complaint: BODY SWELLING Time Seen by Provider: 02/19/19 10:25 Primary Care Provider: MARCOS KWAN MD [Primary Care Provider] - Follow up as needed TRAVEL OUTSIDE OF THE [place] IN LAST 30 DAYS: No - HPI Notes: 02/19/19 10:30 Patient is a 33-year-old female presenting to the emergency department with m ultiple complaints. First complaint is lesions to her scalp and to her face that are painful and red that she has had worsening over the past week. Patient is also complaining of left back/abdominal pain that has been ongoing for the past week. Patient states that the left side of her body in that area is swollen when compared to the right subjectively. She is otherwise eating and drinking without difficulty. She is urinating normally and having normal bowel movements. She has not had any vaginal discharge, odor, or bleeding. Denies any headache, fever, neck pain, URI, sore throat, chest pain, palpitations, syncope, cough, shortness of breath, wheeze, dyspnea, nausea/vomiting/diarrhea, urinary retention, dysuria, hematuria, loss of control of bowel or bladder, numbness/tingling, saddle anesthesia, muscle paralysis/weakness. I have treated and performed a rapid initial assessment of this patient. A comprehensive ED assessment and evaluation of the patient, analysis of test resu lts and completion of medical decision making process will be conducted by additional ED providers. PHYSICAL EXAMINATION: GENERAL: Well-appearing, well-nourished and in no acute resp distress. A&Ox4. Answers questions appropriately. Pt tearful LUNGS: Breath sounds clear to auscultation bilaterally and equal. No wheezes rales or rhonchi. HEART: Regular rate and rhythm without murmurs, rubs, gallops. ABDOMEN: Soft, nondistended abdomen. No guarding, no rebound. Normal bowel sounds present. +mild tenderness left abd Back: + tenderness left low/mid back to paraspinal area. Extremities: No cyanosis, clubbing, or edema b/l. NEUROLOGICAL: Normal speech, normal gait. PSYCH: Normal mood, normal affect. - Related Data Allergies/Adverse Reactions: citalopram hydrobromide [From Celexa] Allergy (Verified 02/19/19 10:10) eletriptan [From Relpax] Allergy (Verified 02/19/19 10:10) hydrocodone bitartrate [From Vicodin] Allergy (Verified 02/19/19 10:10) naproxen sodium [From Treximet] Allergy (Verified 02/19/19 10:10) sumatriptan [From Imitrex] Allergy (Verified 02/19/19 10:10) sumatriptan succinate [From Imitrex] Allergy (Verified 02/19/19 10:10) adhesive tape Adverse Reaction (Verified 02/19/19 10:10) Past Medical History Neurological Medical History: Reports: Hx Migraine Renal/ Medical History: Denies: Hx Peritoneal Dialysis Musculoskeltal Medical History: Reports Hx Arthritis, Reports Hx Musculoskeletal Deformity, Reports Hx Musculoskeletal Trauma Psychiatric Medical History: Reports: Hx Anxiety Traumatic Medical History: Reports: Hx Traumatic Brain Injury Past Surgical History: Reports: Hx Orthopedic Surgery - Rt shoulder; Lt knee x2 - Immunizations Immunizations up to date: Yes Hx Diphtheria, Pertussis, Tetanus Vaccination: Yes Physical Exam - Vital signs Vitals: Temp Pulse Resp BP Pulse Ox 98 F 106 H 22 H 148/99 H 99 02/19/19 10:13 02/19/19 10:13 02/19/19 10:13 02/19/19 10:13 02/19/19 10:13 Course - Vital Signs Vital signs: Temp Pulse Resp BP Pulse Ox 98 F 106 H 22 H 148/99 H 99 02/19/19 10:13 02/19/19 10:13 02/19/19 10:13 02/19/19 10:13 02/19/19 10:13 Doctor's Discharge - Discharge Referrals: MARCOS KWAN MD [Primary Care Provider] - Follow up as needed
[2019-02-19 10:56] LABS: ABSOLUTE EOSINOPHILS # (AUTO) 0.1 10^3/uL (0.0-0.6); ABSOLUTE LYMPHOCYTES (AUTO) 2.6 10^3/uL (0.5-4.7); ABSOLUTE MONOCYTES (AUTO) 0.7 10^3/uL (0.1-1.4); ABSOLUTE NEUT (AUTO) 5.2 10^3/uL (1.7-8.2); BASOPHILS % (AUTO) 0.3 % (0-2); EOSINOPHILS % (AUTO) 1.6 % (0-6); HEMOGLOBIN 14.5 g/dL (12.0-15.5); LYMPHOCYTES % (AUTO) 30.2 % (13-45); MEAN CORPUSCULAR HEMOGLOBIN 30.2 pg (27.0-33.4); MEAN CORPUSCULAR HGB CONC 33.8 g/dL (32.0-36.0); MEAN CORPUSCULAR VOLUME 89 fl (80-97); MONOCYTES % (AUTO) 7.7 % (3-13); PLATELET COUNT 267 10^3/uL (150-450); RED BLOOD COUNT 4.82 10^6/uL (3.72-5.28); RED CELL DISTRIBUTION WIDTH 15.1 % (11.5-14.0); SEGMENTED NEUTROPHILS % (AUTO) 60.2 % (42-78); TOTAL CELLS COUNTED % (AUTO) 100 %; WHITE BLOOD COUNT 8.6 10^3/uL (4.0-10.5)
[2019-02-19 11:08] LABS: APPEARANCE,URINE TURBID; BILIRUBIN,URINE SMALL (NEGATIVE); GLUCOSE, URINE NEGATIVE (NEGATIVE); KETONES,URINE NEGATIVE (NEGATIVE); LEUKOCYTE ESTERASE,URINE MODERATE (NEGATIVE); NITRITE,URINE NEGATIVE (NEGATIVE); PROTEIN,URINE 100 mg/dL (NEGATIVE); URINE SPECIFIC GRAVITY 1.026
[2019-02-19 11:09] LABS: COLOR,URINE DARK YELLOW
[2019-02-19 11:14] LABS: ALANINE AMINOTRANSFERASE 29 U/L (9-52); ALKALINE PHOSPHATASE 77 U/L (38-126); ANION GAP 12 (5-19); ASPARTATE AMINO TRANSFERASE 28 U/L (14-36); BILIRUBIN,DIRECT 0.3 mg/dL (0.0-0.4); BILIRUBIN,TOTAL 0.8 mg/dL (0.2-1.3); BLOOD UREA NITROGEN 8 mg/dL (7-20); CALCIUM 10.6 mg/dL (8.4-10.2); CARBON DIOXIDE 24 mmol/L (22-30); CHLORIDE 104 mmol/L (98-107); GLUCOSE 122 mg/dL (75-110); POTASSIUM 3.8 mmol/L (3.6-5.0); SODIUM 140.1 mmol/L (137-145); TOTAL PROTEIN 8.5 g/dL (6.3-8.2)
--- NOTE | 2019-02-19 11:14 | RADIOLOGY REPORT (SQ) ---
EXAM DESCRIPTION: KUB/ABDOMEN (SINGLE VIEW) COMPLETED DATE/TIME: 02/19/2019 11:02 am REASON FOR STUDY: left abd/back pain COMPARISON: 08/30/2018 NUMBER OF VIEWS: One view. TECHNIQUE: Supine radiographic image of the abdomen acquired. LIMITATIONS: None. FINDINGS: BOWEL GAS PATTERN: Nonspecific bowel gas pattern. No evidence of intestinal obstruction. Mild fecal burden in the ascending colon. CALCIFICATIONS: No radiopaque calculi overlie kidneys or expected course of ureters. No suspicious c alcifications. SOFT TISSUES: No gross mass or suggestion of organomegaly. HARDWARE: None in the abdomen. BONES: No acute fracture. No worrisome bone lesions. OTHER: Piercings overlie chest and midline abdomen. IMPRESSION: No evidence of intestinal obstruction or other acute intra-abdominal process. TECHNICAL DOCUMENTATION: JOB ID: [id number] [employer]- All Rights Reserved Reading location - IP/workstation name: [email or web address]
[2019-02-19] MEDS ORDERED: IBUPROFEN 600 MG TABLET PO ONE (11:24)
[2019-02-19] MEDS ORDERED: ACETAMINOPHEN 325 MG TABLET PO ONE (11:24)
--- NOTE | 2019-02-19 11:29 | ER Document Report ---
ED General - General Chief Complaint: Facial Swelling Stated Complaint: BODY SWELLING Time Seen by Provider: 02/19/19 10:25 Primary Care Provider: MARCOS KWAN MD [Primary Care Provider] - Follow up in 3-5 days Notes: Patient is a 33-year-old female who presents to the emergency department with a chief complaint of left body swelling. Her symptoms started about a month ago and she states that she sometimes has a sharp pain in her left side. She denies any dysuria or urinary incontinence. She is tender on the left side. Denies any trauma. She also complains of a lesion to her scalp on her right side of her head just above her her ear. She denies any vomiting, diarrhea, or nausea. Past medical history includes pneumonia and chronic pain. She was on Lyrica 150 mg 3 times daily, but recently stopped taking her Lyrica due to having problems at her work. She also has a past medical history of anxiety and depression. She is a current every day smoker, denies alcohol use, and has history of IV dr ug use. TRAVEL OUTSIDE OF THE [place] IN LAST 30 DAYS: No - Related Data Allergies/Adverse Reactions: citalopram hydrobromide [From Celexa] Allergy (Verified 02/19/19 10:10) eletriptan [From Relpax] Allergy (Verified 02/19/19 10:10) hydrocodone bitartrate [From Vicodin] Allergy (Verified 02/19/19 10:10) naproxen sodium [From Treximet] Allergy (Verified 02/19/19 10:10) sumatriptan [From Imitrex] Allergy (Verified 02/19/19 10:10) sumatriptan succinate [From Imitrex] Allergy (Verified 02/19/19 10:10) adhesive tape Adverse Reaction (Verified 02/19/19 10:10) Past Medical History - Social History Smoking Status: Current Every Day Smoker Chew tobacco use (# tins/day): No Frequency of alcohol use: None Drug Abuse: Marijuana Family History: Hypertension, Other - Adopted Patient has suicidal ideation: No Patient has homicidal ideation: No Pulmonary Medical History: Reports: Hx Pneumonia Neurological Medical History: Reports: Hx Migraine Renal/ Medical History: Denies: Hx Peritoneal Dialysis Musculoskeletal Medical History: Reports Hx Arthritis, Reports Hx Musculoskeletal Deformity, Reports Hx Musculoskeletal Trauma Psychiatric Medical History: Reports: Hx Anxiety Traumatic Medical History: Reports: Hx Traumatic Brain Injury Past Surgical History: Reports: Hx Orthopedic Surgery - Rt shoulder; Lt knee x2 - Immunizations Immunizations up to date: Yes Hx Diphtheria, Pertussis, Tetanus Vaccination: Yes Review of Systems - Review of Systems Notes: REVIEW OF SYSTEMS: CONSTITUTIONAL : Denies recent illness. Denies recent unintentional weight loss. Denies fever, chills, or sweats. EENT: Denies eye, ear, throat, or mouth pain, discharge, or symptoms. Denies nasal or sinus congestion. CARDIOVASCULAR: Denies chest pain. RESPIRATORY: Denies shortness of breath, cough, congestion, difficulty breathing, or wheezing. GASTROINTESTINAL: Denies nausea, vomiting, and diarrhea. Denies abdominal pain. Denies constipation. GENITOURINARY: Denies difficulty urinating, burning, blood in urine, urgency or frequency. MUSCULOSKELETAL: See HPI. SKIN: See HPI HEMATOLOGIC : Denies easy bruising or bleeding. LYMPHATIC: Denies swollen, painful, enlarged glands. NEUROLOGICAL: Denies no numbness or tingling denies weakness. Denies headache. Denies altered mental status. Denies alteration in speech. PSYCHIATRIC: Denies stress, anxiety, alteration in sleep patterns, or depres nahun. All other systems reviewed and negative. Physical Exam - Vital signs Vitals: Temp Pulse Resp BP Pulse Ox 98 F 106 H 22 H 148/99 H 99 02/19/19 10:13 02/19/19 10:13 02/19/19 10:13 02/19/19 10:13 02/19/19 10:13 - Notes Notes: PHYSICAL EXAMINATION: GENERAL: Appears well, healthy, well-nourished, no acute distress. HEAD: Normocephalic, atraumatic. EYES: PERRL, conjunctiva normal, all extraocular movements intact, sclera nonicteric ENT: Moist mucous membranes. NECK: Supple, no noticeable swelling, redness, rash. Normal range of motion. LUNGS: Equal breath sounds bilaterally and clear to auscultation. No wheezes rales or rhonchi. CARDIOVASCULAR: S1-S2, regular rate, regular rhythm. Radial pulses 2+, normal. ABDOMEN: Normoactive bowel sounds. Soft, nontender, no guarding, no rebound tenderness, and no masses palpated. EXTREMITIES: Normal strength and range of motion, no pitting or edema. No cyanosis. NEUROLOGICAL: Moves all extremities upon command. Strength 5/5 in all extremities. PSYCH: Normal mood, normal affect. SKIN: Warm, dry. Cellulitis noted to right side of head with open sore, but no drainage noted. No pocket of fluid noted on bedside ultrasound. Normal skin turgor. BACK: CVA Tenderness on left side. Course - Re-evaluation Re-evalutation: 02/19/19 11:40 Bedside ultrasound was done and no pocket of fluid was noted on patient sore to the right side of her head above her ear. Her other areas that she states hurt are not concerning for any abscess. She will be started on clindamycin since she is allergic to Keflex. This will also cover possible urinary tract infection due to her having CVA tenderness and a moderate amount of leukocytes on her urine. It is uncertain as to whether or not her urine is truly infected, due to her having a large amount of squamous cells noted in her urine. The clindamycin will cover any urinary tract infection. A urine culture was sent. Her chest x-ray is normal. Chemistry and hematology are grossly unremarkable. She will follow-up with her primary care provider in regards to this visit. Verbal discharge instructions were given to the patient. They verbalized understanding. They are stable for discharge. - Vital Signs Vital signs: Temp Pulse Resp BP Pulse Ox 98 F 106 H 22 H 148/99 H 99 02/19/19 10:13 02/19/19 10:13 02/19/19 10:13 02/19/19 10:13 02/19/19 10:13 - Laboratory Result Diagrams: 02/19/19 10:45 02/19/19 10:45 Laboratory results interpreted by me: 02/19/19 02/19/19 02/19/19 10:45 10:45 10:45 RDW 15.1 H Glucose 122 H Calcium 10.6 H Total Protein 8.5 H Urine Protein 100 H Urine Bilirubin SMALL H Urine Urobilinogen 4.0 H Ur Leukocyte Esterase MODERATE H Urine Ascorbic Acid 40 H Discharge - Discharge Clinical Impression: Cellulitis Qualifiers: Site of cellulitis: head Qualified Code(s): L03.811 - Cellulitis of head [any part, except face] Condition: Stable Disposition: HOME, SELF-CARE Additional Instructions: You were seen today in the emergency department for flank pain and for a sore on the right side of your head. You do have cellulitis. Please take your antibiotics as prescribed. Follow-up with your primary care provider in 3-5 days in regards to this visit. If you do have a urinary tract infection, the medication prescribed to you will cover the urinary tract infection. If you have worsening symptoms, develop a fever, or have any symptoms that are worrisome to you, please return to the emergency department. Prescriptions: Clindamycin HCl [Cleocin 150 mg Capsule] 300 mg PO Q6 7 Days #56 capsule Referrals: MARCOS KWAN MD [Primary Care Provider] - Follow up in 3-5 days
[2019-02-19] MEDS ORDERED: KETOROLAC TROMETHAMINE 60 MG/2 ML SDV IM ONE (11:47)
[2019-02-19 12:18] VITALS: BP 133/88
== END 2019-02-19 12:16 | disposition home or self-care (01) ==
LOC: ER 10:09
DX: L03.811 Cellulitis of head [any part, except face] (principal); R52 Pain, unspecified; F17.200 Nicotine dependence, unspecified, uncomplicated; F12.10 Cannabis abuse, uncomplicated; Z88.8 Allergy status to other drugs, medicaments and biological substances; Z88.6 Allergy status to analgesic agent; Z88.5 Allergy status to narcotic agent
CPT/HCPCS: 36415; 74018; 80053; 81001; 85025; 87086; 87088; 99283

== ENCOUNTER 2019-04-15 09:20 | Day surgery (SDC) | payer BC ==
[2019-04-08 10:11] LABS: ABSOLUTE EOSINOPHILS # (AUTO) 0.1 10^3/uL (0.0-0.6); ABSOLUTE LYMPHOCYTES (AUTO) 1.6 10^3/uL (0.5-4.7); ABSOLUTE MONOCYTES (AUTO) 0.5 10^3/uL (0.1-1.4); ABSOLUTE NEUT (AUTO) 3.6 10^3/uL (1.7-8.2); BASOPHILS % (AUTO) 0.3 % (0-2); EOSINOPHILS % (AUTO) 1.2 % (0-6); HEMATOCRIT 39.3 % (36.0-47.0); LYMPHOCYTES % (AUTO) 27.8 % (13-45); MEAN CORPUSCULAR HEMOGLOBIN 28.9 pg (27.0-33.4); MEAN CORPUSCULAR HGB CONC 33.1 g/dL (32.0-36.0); MEAN CORPUSCULAR VOLUME 87 fl (80-97); MONOCYTES % (AUTO) 8.8 % (3-13); PLATELET COUNT 212 10^3/uL (150-450); RED BLOOD COUNT 4.51 10^6/uL (3.72-5.28); RED CELL DISTRIBUTION WIDTH 13.9 % (11.5-14.0); SEGMENTED NEUTROPHILS % (AUTO) 61.9 % (42-78); TOTAL CELLS COUNTED % (AUTO) 100 %; WHITE BLOOD COUNT 5.8 10^3/uL (4.0-10.5)
[2019-04-08 10:29] LABS: ANION GAP 10 (5-19); BLOOD UREA NITROGEN 10 mg/dL (7-20); CALCIUM 9.4 mg/dL (8.4-10.2); CARBON DIOXIDE 29 mmol/L (22-30); CHLORIDE 103 mmol/L (98-107); GLUCOSE 61 mg/dL (75-110); POTASSIUM 3.7 mmol/L (3.6-5.0); SODIUM 141.5 mmol/L (137-145)
[~2019-04-15 09:20] MED LIST: ALBUTEROL SULFATE 0.083% NEB 2.5 MG/3 ML AMPUL NEB PRN; CLINDAMYCIN 600 MG/D5W RTU 600 MG/50 ML RTUPB IV PRN; LACTATED RINGERS 1000 ML IV PRN; LIDOCAINE 0.5% INJ-PF (5 MG/ML) 50 ML SDV SUBCUT PRN
[2019-04-15] MEDS ORDERED: CLINDAMYCIN 600 MG/D5W RTU 600 MG/50 ML RTUPB IV ONE (09:25)
[2019-04-15] MEDS ORDERED: ALBUTEROL SULFATE 0.083% NEB 2.5 MG/3 ML AMPUL NEB ONE ×2 (10:00→10:39)
[2019-04-15] MEDS ORDERED: MIDAZOLAM 2 MG/2 ML INJ IV ONE (10:00)
[2019-04-15] MEDS ORDERED: FAMOTIDINE INJ/PF 20 MG/2 ML SDV IV ONE ×2 (10:00→10:14)
[2019-04-15] MEDS ORDERED: MIDAZOLAM 2 MG/2 ML INJ ONE ×2 (10:14→11:45)
[2019-04-15] MEDS ORDERED: LIDOCAINE 1% INJ-PF (10 MG/ML) 30 ML SDV ONE (10:49)
[2019-04-15] MEDS ORDERED: PROPOFOL INJ 200 MG/20 ML VIAL IV ONE ×2 (11:44→12:43)
[2019-04-15] MEDS ORDERED: FENTANYL CITRATE INJ/PF 100 MCG/2 ML AMPUL ONE (11:45)
[2019-04-15] MEDS ORDERED: KETAMINE HCL INJ 500 MG/10 ML VIAL ONE (11:45)
[2019-04-15] MEDS ORDERED: DIPHENHYDRAMINE HCL 50 MG/ML VIAL IV PRN (12:29)
[2019-04-15] MEDS ORDERED: PROMETHAZINE HCL INJ 25 MG/1 ML VIAL IV PRN ×2 (12:29)
[2019-04-15] MEDS ORDERED: MEPERIDINE HCL/PF INJ 25 MG/1 ML DISP.SYRIN IV PRN (12:29)
[2019-04-15] MEDS ORDERED: OXYCODONE-ACETAMINOPHEN 5-325 MG TABLET PO PRN (12:31)
[2019-04-15] MEDS ORDERED: ONDANSETRON HCL INJ/PF 4 MG/2 ML SDV IV PRN (12:31)
--- NOTE | 2019-04-15 12:32 | Discharge Summary ---
Discharge Summary (SDC) - Discharge Final Diagnosis: Mass right small finger Date of Surgery: 04/15/19 Discharge Date: 04/15/19 Condition: Good Treatment or Instructions: Schedule Follow Up w/ Dr. Nicola Tolliver @ [facility] for Surgery to be seen in 10-14 days or as scheduled [place]: [place]: [place]: May remove dressing on postop day #3, keep incision covered and dry. Ice and elevate May begin finger range of motion attempting to make full fist. Stool softener of choice when on pain medication. USE OF MVTM-ACO-MYEMLCC IBUPROFEN: Ibuprofen (Advil, Nuprin, Medipren, Motrin IB) is a medication for fever and pain control. In addition, it has anti- inflammatory effects which may be beneficial, especially in the treatment of injuries. It's best to take ibuprofen with food. Persons with ulcer disease or allergy to aspirin should notify their physician of this before taking ibuprofen. Ibuprofen can be given every four to six hours, for a total of four doses daily. Age Pain or fever dose Antiinflammatory dose 6-8 yr 200 mg (1 tab) 200 mg (1 tab) 9-11 yr 200 mg (1 tab) 200-400 mg (1-2 tab) 11-14 yr 200-400 mg (1-2 tab) 400 mg (2 tab) 15-adult 400 mg (2 tab) 600 mg (3 tab) ORAL NARCOTIC MEDICATION: You have been given a prescription for pain control. This medication is a narcotic. It's best taken with food, as nausea can result if taken on an empty stomach. Don't operate machinery or drive within six hours of taking this medication. Do not combine this medicine with alcohol, or with any medication which can cause sedation (such as cold tablets or sleeping pills) unless you get permission from the physician. Narcotics tend to cause constipation. If possible, drink plenty of fluids and eat a diet high in fiber and fruits. Please be aware that prescription narcotics also have the potential for abuse. People become addicted to these medications because of the general sense of wellbeing that they induce. This feeling along with a significant reduction in tension, anxiety, and aggression provides a stimulating seductive quality to these drugs. Once your pain is under control, we encourage you to discard your unused narcotics. Referrals: MARCOS KWAN MD [Primary Care Provider] - Discharge Diet: As Tolerated Respiratory Treatments at Home: Deep Breathing/Coughing Discharge Activity: Activity As Tolerated Report the Following to Your Physician Immediately: Fever over 101 Degrees, Unusual Bleeding, Redness, Swelling, Warmth, Increased Soreness
--- NOTE | 2019-04-15 12:33 | Operative Report ---
Operative Report DATE OF SURGERY: 04/15/19 PREOPERATIVE DIAGNOSIS: Right small finger mass POSTOPERATIVE DIAGNOSIS: Same OPERATION: Excision deep mass right small finger SURGEON: ISHAN BEY ANESTHESIA: LMAC COMPLICATIONS: None ESTIMATED BLOOD LOSS: Minimal PROCEDURE: Indication for above procedure: 33-year-old female developed a mass along the palmar aspect of her right small finger. Given the location of the mass it was causing her discomfort and inability to grasp and lift objects. At that point we discussed treatment options including operative versus nonoperative intervention after discussing risks and benefits joint decision was made to proceed with operative treatment. Procedure in detail: Patient was seen and evaluated in the preoperative holding area. The RIGHT upper extremity was initialized and marked. Patient received 2g of Ancef IV for bacterial prophylaxis. Patient was taken back to the operative room where transferred to the operative table. Once they were adequately anesthetized a nonsterile tourniquet was placed on the upper extremity. A surgical team debriefing was performed ensuring all instrumentation was available, the surgical procedure was discussed with possible concerns reviewed. A digital block was performed utilizing 10 mL of 1% lidocaine without epinephrine. The upper extremity was prepped with chlorhexidine and alcohol and draped in a sterile fashion. A timeout was done identifying correct patient, procedure and extremity everyone in attendance agree with this and verbalized no concerns. The extremity was exsanguinated the tourniquet was inflated to 250 mmHg. Oblique skin incision was made at the level of the small finger middle phalanx. Blunt dissection was performed. Radial and ulnar neurovascular bundles were identified. Mass was then isolated from the surrounding soft tissues and meticulous dissection performed down to its origin along the tendon sheath. Ma ss was then successfully removed. However it was multiloculated. Mass measured approximately 9 mm x 8 mm. Mass had consistency consistent with fibroma versus giant cell tumor of tendon sheath. Wound was copiously irrigated with normal saline. Any peripheral veins were coagulated with bipolar cautery. Surgical incision was closed with interrupted 4-0 nylon suture. Wound was dressed Xeroform 4 x 4's and a soft bandage. Sponge counts, instrument counts, needle counts counts were correct. Patient was then awoken from anesthesia. Transferred from the operating room table to the operating room stretcher. There was no intraoperative complications patient tolerated procedure well stable to PACU. Postoperative plan: Patient will follow-up as scheduled for wound check. They will call with any questions or concerns.
[2019-04-15 14:37] VITALS: BP 145/85
[2019-04-15] MEDS ORDERED: ONDANSETRON HCL INJ/PF 4 MG/2 ML SDV ONE (14:41)
[2019-04-15] MEDS ORDERED: KETOROLAC TROMETHAMINE 60 MG/2 ML SDV ONE (14:41)
== END 2019-04-15 14:41 | disposition home or self-care (01) ==
LOC: OROUT 09:20
PROVIDERS: ATTEND Orthopaedic Surgery
DX: M67.442 Ganglion, left hand (principal); F17.210 Nicotine dependence, cigarettes, uncomplicated
CPT/HCPCS: 36415; 85025; 81025; 80048; 88304 ×2; 26160; J2250; J1885; J3010; J3490 ×2; J2405; J2704; S0028; 1810

== ENCOUNTER 2020-01-25 21:34 | Inpatient (IN) | payer SELFPAY ==
[2020-01-25] MEDS ORDERED: PROMETHAZINE HCL INJ 25 MG/1 ML VIAL IM ONE (22:44)
[2020-01-25] MEDS ORDERED: NORMAL SALINE 1000 ML 1,000 ML IV ONE (22:44)
--- NOTE | 2020-01-25 22:48 | ER Document Report ---
ED Substance Abuse / Acc. OD - General Chief Complaint: Overdose Stated Complaint: POSSIBLE OVERDOSE Time Seen by Provider: 01/25/20 22:35 Notes: Patient is a 34-year-old female that comes by EMS for chief complaint of an overdose. Reportedly patient's friend assisted her in overdosing and then called EMS when she became unarousable. Patient states that she just drove in from [place] and a long trip, she is here to surprise her parents, she states that after she got here she wanted to take something to calm down so she accepted a medication that she thought was heroin and injected it. She states that she thinks there might have been "an upper and a downer in it knowing this place". She does admit to previous IV drug abuse but states she has not used in a long time [place]. She denies SI or HI. EMS did report i nitial apnea at 6 respirations per minute and gave 2 mg IV Narcan and an additional 0.8 mg of Narcan afterwards. Patient denies alcohol or recreational drugs otherwise. TRAVEL OUTSIDE OF THE [place] IN LAST 30 DAYS: No - Related Data Allergies/Adverse Reactions: amoxicillin [From Augmentin] Allergy (Verified 01/25/20 21:53) citalopram hydrobromide [From Celexa] Allergy (Verified 02/19/19 10:10) clavulanic acid [From Augmentin] Allergy (Verified 01/25/20 21:53) eletriptan [From Relpax] Allergy (Verified 02/19/19 10:10) hydrocodone bitartrate [From Vicodin] Allergy (Verified 02/19/19 10:10) naproxen sodium [From Treximet] Allergy (Verified 02/19/19 10:10) sumatriptan [From Imitrex] Allergy (Verified 02/19/19 10:10) adhesive tape Adverse Reaction (Verified 02/19/19 10:10) Past Medical History - General Information source: Patient - Social History Smoking Status: Current Every Day Smoker Frequency of alcohol use: None Drug Abuse: Heroin Lives with: Family Family History: Hypertension, Other - Adopted Patient has suicidal ideation: No Patient has homicidal ideation: No - Past Medical History Cardiac Medical History: Denies: Hx Coronary Artery Disease, Hx Heart Attack, Hx Hypertension Pulmonary Medical History: Denies: Hx Asthma, Hx Bronchitis, Hx COPD, Hx Pneumonia Neurological Medical History: Reports: Hx Migraine. Denies: Hx Cerebrovascular Accident, Hx Seizures Renal/ Medical History: Denies: Hx Peritoneal Dialysis Musculoskeletal Medical History: Reports Hx Arthritis, Reports Hx Musculoskele asha Deformity, Reports Hx Musculoskeletal Trauma Psychiatric Medical History: Reports: Hx Anxiety Traumatic Medical History: Reports: Hx Traumatic Brain Injury Past Surgical History: Reports: Hx Orthopedic Surgery - Rt shoulder; Lt knee x2 - Immunizations Immunizations up to date: Yes Hx Diphtheria, Pertussis, Tetanus Vaccination: Yes Review of Systems - Review of Systems Constitutional: See HPI EENT: No symptoms reported Cardiovascular: No symptoms reported Respiratory: See HPI Gastrointestinal: No symptoms reported Genitourinary: No symptoms reported Female Genitourinary: No symptoms reported Musculoskeletal: No symptoms reported Skin: No symptoms reported Hematologic/Lymphatic: No symptoms reported Neurological/Psychological: See HPI Physical Exam - Vital signs Vitals: BP 152/115 H 01/25/20 21:39 - Notes Notes: GENERAL: Alert, restless, cooperative but appears slightly distressed HEAD: Normocephalic, atraumatic. EYES: Pupils equal, round, and reactive to light. Pupils slightly bilaterally dilated. Extraocular movements intact. ENT: Oral mucosa moist, tongue midline. Oropharynx unremarkable. Airway patent. LUNGS: Clear to auscultation bilaterally, no wheezes, rales, or rhonchi. No respiratory distress. HEART: Tachycardia, normal rhythm, no murmur ABDOMEN: Soft, non-tender. Non-distended. EXTREMITIES: Moves all 4 extremities spontaneously. No edema, normal radial and dorsalis pedis pulses bilaterally. No cyanosis. BACK: no cervical, thoracic, lumbar midline tenderness. No saddle anesthesia, normal distal neurovascular exam. Moves all extremities in full range of motion. NEUROLOGICAL: Alert and oriented x3. Normal speech. Cranial nerves II through XII grossly intact. PSYCH: Agitated but cooperative SKIN: Flushed Course - Re-evaluation Re-evalutation: 01/26/20 00:05 Patient had been here 2.5 hours, workup delayed with hemolyzed blood. Patient is agitated, flushed, borderline diaphoretic. She states she does not take the prescribed opiates or regular opiates and she had not had any in a while, she denies of having opiate withdrawals. She states she probably "took something mixed", she states she probably has "an upper and a downer". As result patient was given Phenergan IM and 1 mg of Ativan along with IV fluids. Patient's heart rate did trend down into the 120s. Patient on my reevaluation at this time is gabriele alvarado but arousable, maintaining her airway, significantly improved in appearance. We will continue to monitor her. Patient has been discussed with Dr. Almanzar. 01/26/20 02:00 About 2 hours after patient had been medicated again patient started to appear to have symptoms from narcotic, her pupils became pinpoint, she became somnolent, she started to have slow respirations. Patient started to breathe at 6 respirations per minute, suddenly patient was not arousable by sternal rub. I requested 1 mg of Narcan be given, when this was given within a few seconds patient immediately became arousable, responsive, conversational, apnea resolved. Patient will continue to be monitored. She is still tachycardic, because of her recent long distance travel, will proceed with CTA to rule out pulmonary embolism. Catheterized urine has been obtained because patient is still not urinated for us. She has received 2 L boluses of IV fluids. Patient has been discussed with Dr. Almanzar. Urinalysis nonspecific, urine drug screen does show both opiates and methamphetamine most likely. This is consistent with patient's presentation. CTA showing pneumonia, I suspect aspiration because of her history. She was started on antibiotics. Blood cultures are pending. 01/26/20 03:45 Patient is starting to have apnea and somnolence again. Patient is still arousable, more than previously but now she is difficult to arouse and requires a sternal rub. Patient be placed on Narcan drip. After sternal rubbing patient did become awake and conversational however. I did discuss with Dr. Almanzar. He agrees with Narcan drip and admission to the hospital. I discussed with Constantine Daugherty PA-C, platform operations director for the [employer]. Patient is accepted to the ICU. - Vital Signs Vital signs: Temp Pulse Resp BP Pulse Ox 98.4 F 150 H 24 H 167/132 H 99 01/26/20 04:23 01/25/20 21:52 01/26/20 05:47 01/26/20 05:47 01/26/20 05:46 - Laboratory Result Diagrams: 01/25/20 22:10 01/25/20 23:42 Laboratory results interpreted by me: 01/25/20 01/25/20 01/26/20 22:10 23:42 01:51 WBC 16.5 H Hgb 16.2 H Hct 47.6 H Absolute Neuts (auto) 13.4 H Seg Neutrophils % 81.5 H Sodium 145.1 H BUN 6 L Creatinine 1.38 H Est GFR ( Amer) 52 L Est GFR (MDRD) Non-Af 43 L Total Protein 8.4 H Albumin 5.1 H Urine Protein 100 H Ur Leukocyte Esterase TRACE H Urine Ascorbic Acid 20 H Salicylates < 1.0 L Acetaminophen < 10 L Critical Care Note - Critical Care Note Total time excluding time spent on procedures (mins): 40 - Respiratory depression, overdose, pneumonia Comments: Please allow 40 minutes of critical care time for evaluation and management of critically ill patient. Patient with respiratory depression requiring repeat Narcan dose and then requiring Narcan drip later. Additional interventions include treatment of stimulation from amphetamines, IV fluid hydration, and IV antibiotics for pneumonia. Time spent reevaluating the patient multiple times, time spent admitting to the ICU. Discharge - Discharge Clinical Impression: Respiratory depression, Tachycardia Overdose Qualifiers: Encounter type: initial encounter Injury intent: accidental or unintentional Qualified Code(s): T50.901A - Poisoning by unspecified drugs, medicaments and biological substances, accidental (unintentional), initial encounter Pneumonia Qualifiers: Pneumonia type: due to unspecified organism Laterality: bilateral Lung location: lower lobe of lung Qualified Code(s): J18.9 - Pneumonia, unspecified organism Condition: Fair Disposition: ADMITTED INPATIENT Admitting Provider: Dr. Verónica Vogel with Constantine Daugherty PA-C
[2020-01-25 22:58] LABS: ABSOLUTE LYMPHOCYTES (AUTO) 2.2 10^3/uL (0.5-4.7); ABSOLUTE MONOCYTES (AUTO) 0.8 10^3/uL (0.1-1.4); ABSOLUTE NEUT (AUTO) 13.4 10^3/uL (1.7-8.2); BASOPHILS % (AUTO) 0.3 % (0-2); EOSINOPHILS % (AUTO) 0.2 % (0-6); HEMATOCRIT 47.6 % (36.0-47.0); HEMOGLOBIN 16.2 g/dL (12.0-15.5); LYMPHOCYTES % (AUTO) 13.1 % (13-45); MEAN CORPUSCULAR HGB CONC 34.1 g/dL (32.0-36.0); MEAN CORPUSCULAR VOLUME 94 fl (80-97); MONOCYTES % (AUTO) 4.9 % (3-13); RED BLOOD COUNT 5.07 10^6/uL (3.72-5.28); RED CELL DISTRIBUTION WIDTH 13.6 % (11.5-14.0); SEGMENTED NEUTROPHILS % (AUTO) 81.5 % (42-78); TOTAL CELLS COUNTED % (AUTO) 100 %; WHITE BLOOD COUNT 16.5 10^3/uL (4.0-10.5)
[2020-01-25 23:02] LABS: PLATELET COUNT 262 10^3/uL (150-450)
[2020-01-25] MEDS ORDERED: LORAZEPAM INJ 2 MG/1 ML VIAL IV ONE ×2 (23:30→23:32)
--- NOTE | 2020-01-26 00:07 | RADIOLOGY REPORT (SQ) ---
EXAM DESCRIPTION: XR CHEST 1 VIEW COMPLETED DATE/TME: 01/25/2020 22:43 CLINICAL HISTORY: 34 years, Female, shortness of breath, overdosed COMPARISON: 08/30/2018 chest NUMBER OF VIEWS: 1 TECHNIQUE: Portable chest LIMITATIONS: None. FINDINGS: Heart size normal. Lungs clear. No pneumothorax IMPRESSION: Negative chest copyright 2010 [employer]- All Rights Reserved
[2020-01-26 00:22] LABS: ALBUMIN 5.1 g/dL (3.5-5.0); ALKALINE PHOSPHATASE 68 U/L (38-126); ANION GAP 11 (5-19); ASPARTATE AMINO TRANSFERASE 33 U/L (14-36); BILIRUBIN,TOTAL 0.4 mg/dL (0.2-1.3); BLOOD UREA NITROGEN 6 mg/dL (7-20); CALCIUM 9.8 mg/dL (8.4-10.2); CARBON DIOXIDE 29 mmol/L (22-30); CHLORIDE 105 mmol/L (98-107); GLUCOSE 104 mg/dL (75-110); POTASSIUM 4.3 mmol/L (3.6-5.0); TOTAL PROTEIN 8.4 g/dL (6.3-8.2)
[2020-01-26 00:23] LABS: ACETAMINOPHEN < 10 ug/mL (10-30); ALCOHOL < 10 mg/dL (NONE DETECTED); SALICYLATE < 1.0 mg/dL (2.0-20.0)
[2020-01-26] MEDS: NALOXONE HCL INJ 2 MG/2 ML DISP.SYRIN ONE ×2 (01:46→02:26)
[2020-01-26 02:11] LABS: APPEARANCE,URINE SLIGHTLY-CLOUDY; BILIRUBIN,URINE NEGATIVE (NEGATIVE); COLOR,URINE YELLOW; GLUCOSE, URINE NEGATIVE (NEGATIVE); KETONES,URINE NEGATIVE (NEGATIVE); LEUKOCYTE ESTERASE,URINE TRACE (NEGATIVE); NITRITE,URINE NEGATIVE (NEGATIVE); PROTEIN,URINE 100 mg/dL (NEGATIVE); URINE SPECIFIC GRAVITY 1.005; UROBILINOGEN,URINE NEGATIVE mg/dL (<2.0)
[2020-01-26] MEDS ORDERED: NORMAL SALINE 1000 ML 1,000 ML IV ONE (02:11)
[2020-01-26] MEDS: NALOXONE HCL INJ 2 MG/2 ML DISP.SYRIN IV ONE ×2 (02:12→02:34)
--- NOTE | 2020-01-26 02:52 | RADIOLOGY REPORT (SQ) ---
CT angiogram chest with contrast on 01/26/2020 at 2:26 AM CLINICAL INDICATION: Tachycardia, recent travel TECHNIQUE: Multiple axial images are obtained throughout the chest following the administration of IV contrast. Computer generated 3D reconstructions/MIPS were performed. 75 mL of Omnipaque 350 contrast was administered intravenously. This exam was performed according to our departmental dose-optimization program, which includes automated exposure control, adjustment of the mA and/or kV according to patient size and/or use of iterative reconstruction technique. Total DLP is 658.03 mGy*cm. COMPARISON: CT abdomen and lower chest from 03/30/2018 FINDINGS: There is no thoracic aortic aneurysm or dissection. There is no pleural or pericardial effusion. Limited visualized upper abdomen is unremarkable. There is no thoracic adenopathy. There are no filling defects within the pulmonary arteries to suggest pulmonary embolus. There are bilateral groundglass opacities that are nonspecific. There are multiple clustered air space opacities in the right lower lobe and posterior right upper lobe consistent with infection/early pneumonia. Some of this appears tree-in-bud and may represent an infectious bronchiolitis. This only minimally involves the left lower lobe. The bilateral groundglass opacities may also be infectious in nature. No bony abnormality is noted. IMPRESSION: 1. No evidence of pulmonary embolus. 2. Early right greater than left lower lung predominant infection/pneumonia.
[2020-01-26] MEDS ORDERED: CEFTRIAXONE 1 GM/D5W RTU 1 GM/50 ML RTUPB IV ONE (03:07)
[2020-01-26] MEDS ORDERED: AZITHROMYCIN INJ 500 MG VIAL IV ONE (03:07)
[2020-01-26 03:17] LABS: URINE BARBITURATES SCREEN NEGATIVE; URINE BENZODIAZEPINES SCREEN NEGATIVE; URINE COCAINE SCREEN NEGATIVE; URINE MARIJUANA (THC) SCREEN NEGATIVE; URINE METHADONE SCREEN NEGATIVE; URINE PHENCYCLIDINE SCREEN NEGATIVE
[2020-01-26 03:25] LABS: URINE AMPHETAMINES SCREEN UNCONFIRMED POSITIVE
[2020-01-26] MEDS: NORMAL SALINE 500 ML with NALOXONE HCL 2 MG IV PRN ×4 (03:45→08:54)
[2020-01-26] MEDS ORDERED: RINGERS SOLUTION,LACTATED 1,000 ML IV PRN (05:45)
[2020-01-26] MEDS ORDERED: HEPARIN SOD (PORCINE) 5,000 UNIT/ML 1 ML VIAL SUBCUT SCH (06:00)
--- NOTE | 2020-01-26 06:18 | CRITICAL CARE ADMISSION REPORT ---
[facility] Date:: 01/26/20 Time:: 05:45 Reason for ICU Reason:: Opioid overdose requiring Narcan drip. HPI: 84-year-old female with a history of IVDA. Patient presented to ED after accidental overdose while visiting from [place]. She is unaware of any other drug intake however, her urinalysis in the ED was positive for amphetamines as well as opioids. Limited history available as patient was brought in by a friend and has only intermittent consciousness. She was given multiple doses of Narcan but continued to be intermittently obtunded. She was placed on a Narcan drip and has now seemed to gain persistent consciousness. CTA of the chest while in the ED showed bilateral pneumonia with worse opacities on the right. Sputum culture was obtained. Patient was empirically started on ceftriaxone and amoxicillin. No apparent respiratory compromise in relation to her pneumonia. Patient is being admitted to the intensive care unit for observation, treatment of pneumonia and weaning off of the Narcan drip. History obtained from:: Patient and ED provider medical record. - Diagnosis/Plan (1) Pneumonia Qualifiers: Pneumonia type: due to unspecified organism Laterality: bilateral Lung location: lower lobe of lung Qualified Code(s): J18.9 - Pneumonia, unspecified organism Is this a current diagnosis for this admission?: Yes Plan: Patient started on ceftriaxone and azithromycin in the ED. Given her lack of respiratory symptoms related to pneumonia, we will continue with the above antibiotics and follow-up sputum culture. Encourage deep breathing and pulmonary toilet. Begin ambulating when no longer requiring Narcan. (2) Respiratory depression Is this a current diagnosis for this admission?: Yes Plan: Patient no longer with significant respiratory depression when seen in ED. She was however still on a Narcan drip. Monitor vital signs including SPO2 closely. Begin weaning off of Narcan when she is consistently awake. Patient agreed to intubation if needed. (3) Overdose of opiate or related narcotic Qualifiers: Encounter type: initial encounter Injury intent: undetermined intent Qualified Code(s): T40.604A - Poisoning by unspecified narcotics, undetermined, initial encounter Is this a current diagnosis for this admission?: Yes Plan: Continue Narcan drip as needed. Wean as tolerated as patient becomes more consistently lucid. Monitor closely for signs and symptoms of withdrawal. Past Medical History Past Medical History: No known significant past medical history. Patient does have a longstanding history of IVDA. She denies any other drug use however urine is positive for amphetamines. Cardiac Medical History: Denies: Coronary Artery Disease, Myocardial Infarction, Hypertension Pulmonary Medical History: Denies: Asthma, Bronchitis, Chronic Obstructive Pulmonary Disease (COPD), Pneumonia Neurological Medical History: Denies: Seizures Hematology: Denies: Anemia Past Surgical History Past Surgical History: Reports: Orthopedic Surgery - Rt shoulder; Lt knee x2 Social/Family History - Social History Smoking Status: Current Every Day Smoker Frequency of Alcohol Use: Rare Hx Recreational Drug Use: Yes Drugs: Heroin, Marijuana, Other - Amphetamines Hx Prescription Drug Abuse: No - Pt denies - Medication/Allergies Home Medications: Pregabalin [Lyrica] 150 mg PO Q8 08/29/18 Nortriptyline HCl [Pamelor] 50 mg PO QHS 08/30/18 Sertraline HCl 150 mg PO QAM 08/30/18 Topiramate 100 mg PO QHS 08/30/18 Etonogestrel [Nexplanon] 68 mg SQ ASDIR PRN 04/04/19 Allergies/Adverse Reactions: amoxicillin [From Augmentin] Allergy (Verified 01/25/20 21:53) citalopram hydrobromide [From Celexa] Allergy (Verified 02/19/19 10:10) clavulanic acid [From Augmentin] Allergy (Verified 01/25/20 21:53) eletriptan [From Relpax] Allergy (Verified 02/19/19 10:10) hydrocodone bitartrate [From Vicodin] Allergy (Verified 02/19/19 10:10) naproxen sodium [From Treximet] Allergy (Verified 02/19/19 10:10) sumatriptan [From Imitrex] Allergy (Verified 02/19/19 10:10) adhesive tape Adverse Reaction (Verified 02/19/19 10:10) Review of Systems ROS unobtainable: Due to mental status Review of Systems: Xerostomia Physical Exam Vital Signs: Temp Pulse Resp BP Pulse Ox 98.4 F 150 H 24 H 137/92 H 97 01/26/20 04:23 01/25/20 21:52 01/26/20 05:00 01/26/20 04:01 01/26/20 05:00 Intake & Output 01/24/20 01/25/20 01/26/20 05:59 06:59 06:59 Intake Total 2049 Balance 2049 Weight 83.915 kg Weight/Height Weight 83.915 kg Height 5 ft 1 in General appearance: PRESENT: no acute distress Eye exam: PRESENT: EOMI, PERRLA Mouth exam: PRESENT: dry mucosa Respiratory exam: PRESENT: symmetrical, unlabored. ABSENT: crackles, rales, wheezes Cardiovascular exam: PRESENT: RRR, +S1, +S2 Pulses: PRESENT: normal carotid pulses, normal radial pulses Vascular exam: PRESENT: normal capillary refill GI/Abdominal exam: PRESENT: soft. ABSENT: ascites, tenderness Extremities exam: ABSENT: joint swelling Musculoskeletal exam: PRESENT: normal inspection. ABSENT: tenderness Neurological exam: PRESENT: other - Intermittently alert and oriented. Psychiatric exam: PRESENT: appropriate affect Focused psych exam: PRESENT: flight of ideas Skin exam: PRESENT: abrasion, vesicles Laboratory/Radiographs Laboratory Results: 01/25/20 22:10 01/25/20 23:42 01/25/20 01/25/20 01/25/20 22:10 22:10 22:10 WBC 16.5 H RBC 5.07 Hgb 16.2 H Hct 47.6 H MCV 94 MCH 32.0 MCHC 34.1 RDW 13.6 Plt Count 262 Seg Neutrophils % 81.5 H Sodium Cancelled Potassium Cancelled Chloride Cancelled Carbon Dioxide Cancelled Anion Gap Cancelled BUN Cancelled Creatinine Cancelled Est GFR ( Amer) Cancelled Est GFR (Non-Af Amer) Cancelled Glucose Cancelled Calcium Cancelled Total Bilirubin Cancelled AST Cancelled Alkaline Phosphatase Cancelled Total Protein Cancelled Albumin Cancelled Serum HCG, Qual Cancelled Urine Color Urine Appearance Urine pH Ur Specific [place] Urine Protein Urine Glucose (UA) Urine Ketones Urine Blood Urine Nitrite Ur Leukocyte Esterase Urine WBC (Auto) Urine RBC (Auto) 01/25/20 01/25/20 01/26/20 23:42 23:42 01:51 WBC RBC Hgb Hct MCV MCH MCHC RDW Plt Count Seg Neutrophils % Sodium 145.1 H Potassium 4.3 Chloride 105 Carbon Dioxide 29 Anion Gap 11 BUN 6 L Creatinine 1.38 H Est GFR ( Amer) 52 L Est GFR (Non-Af Amer) Glucose 104 Calcium 9.8 Total Bilirubin 0.4 AST 33 Alkaline Phosphatase 68 Total Protein 8.4 H Albumin 5.1 H Serum HCG, Qual NEGATIVE Urine Color YELLOW Urine Appearance SLIGHTLY-CLOUDY Urine pH 7.0 Ur Specific [place] 1.005 Urine Protein 100 H Urine Glucose (UA) NEGATIVE Urine Ketones NEGATIVE Urine Blood NEGATIVE Urine Nitrite NEGATIVE Ur Leukocyte Esterase TRACE H Urine WBC (Auto) 4 Urine RBC (Auto) 0 Impressions: Chest X-Ray 01/25/20 22:43 IMPRESSION: Negative chest copyright 2011 [employer]- All Rights Reserved Chest/Abdomen CTA 01/26/20 01:56 IMPRESSION: 1. No evidence of pulmonary embolus. 2. Early right greater than left lower lung predominant infection/pneumonia. All labs, radiographs, diagnostic studies and EKGs were personally reviewed: Yes In addition, reports of radiographic and diagnostic studies were read: Yes Critical Time Critical Time (minutes): 70 -: The care of a critically ill patient is dynamic. This note represents a static moment in the admission process. Orders and treatments may be given simultaneously and urgently, and time is not automotive leasing sales representative of the treatment process. This patient requires Critical Care secondary to life threatening organ or limb dysfunction. Without Critical Care services, the patient is at risk for increased mortality and morbidity.
--- NOTE | 2020-01-26 06:25 | EKG REPORT ---
SEVERITY:- ABNORMAL ECG - SINUS TACHYCARDIA NONSPECIFIC T ABNORMALITIES, INFERIOR LEADS : Confirmed by: Naveen Martin MD 26-Jan-2020 06:25:22
[2020-01-26] MEDS ORDERED: INFLUENZA QUAD (6MOS+) 2019-20 VAC 0.5 ML SYR IM ONE (07:25)
[2020-01-26] MEDS ORDERED: TIZANIDINE HCL 4 MG TABLET PO PRN (12:13)
--- NOTE | 2020-01-26 12:22 | PDOC CRITICAL CARE PROG REPORT ---
General Date:: 01/26/20 ICU Day:: 1 Hospital Day:: 1 Resuscitation Status: Full Code Events in the past 12 to 24 Hours:: Off narcan drip. Review of systems relevant to events:: Neuroogical. Reason for ICU Addmission:: Opioid overdose requiring Narcan drip. - Medications: Medications reviewed and adjusted accordingly: Yes Vasopressors:: None Sedation:: None Physical Exam Vital Signs: Temp Pulse Resp BP Pulse Ox 98.6 F 133 H 22 H 173/106 H 95 01/26/20 06:27 01/26/20 10:00 01/26/20 10:01 01/26/20 10:01 01/26/20 10:00 Intake & Output 01/25/20 01/26/20 01/27/20 06:59 06:59 06:59 Intake Total 2049 70 Output Total 0 Balance 2049 70 Weight 91.9 kg Weight/Height Weight 91.9 kg Height 5 ft 1 in General appearance: PRESENT: no acute distress, well-developed, well-nourished Head exam: PRESENT: atraumatic, normocephalic Eye exam: PRESENT: conjunctiva pink, EOMI, PERRLA. ABSENT: scleral icterus Ear exam: PRESENT: normal external ear exam Mouth exam: PRESENT: moist, tongue midline Cardiovascular exam: PRESENT: RRR, tachycardia GI/Abdominal exam: PRESENT: normal bowel sounds, soft. ABSENT: distended, guarding, mass, organolmegaly, rebound, tenderness Rectal exam: PRESENT: deferred Extremities exam: PRESENT: full ROM. ABSENT: calf tenderness, clubbing, pedal edema Musculoskeletal exam: PRESENT: normal inspection Neurological exam: PRESENT: alert, awake, oriented to person, oriented to place, oriented to time, oriented to situation, CN II-XII grossly intact. ABSENT: motor sensory deficit Psychiatric exam: PRESENT: appropriate affect, normal mood. ABSENT: homicidal ideation, suicidal ideation Skin exam: PRESENT: dry, intact, warm. ABSENT: cyanosis, rash Laboratory/Radiographs Laboratory Results: 01/25/20 22:10 01/25/20 23:42 01/25/20 01/25/20 01/25/20 22:10 22:10 22:10 WBC 16.5 H RBC 5.07 Hgb 16.2 H Hct 47.6 H MCV 94 MCH 32.0 MCHC 34.1 RDW 13.6 Plt Count 262 Seg Neutrophils % 81.5 H Sodium Cancelled Potassium Cancelled Chloride Cancelled Carbon Dioxide Cancelled Anion Gap Cancelled BUN Cancelled Creatinine Cancelled Est GFR ( Amer) Cancelled Est GFR (Non-Af Amer) Cancelled Glucose Cancelled Calcium Cancelled Total Bilirubin Cancelled AST Cancelled Alkaline Phosphatase Cancelled Total Protein Cancelled Albumin Cancelled Serum HCG, Qual Cancelled Urine Color Urine Appearance Urine pH Ur Specific [place] Urine Protein Urine Glucose (UA) Urine Ketones Urine Blood Urine Nitrite Ur Leukocyte Esterase Urine WBC (Auto) Urine RBC (Auto) 01/25/20 01/25/20 01/26/20 23:42 23:42 01:51 WBC RBC Hgb Hct MCV MCH MCHC RDW Plt Count Seg Neutrophils % Sodium 145.1 H Potassium 4.3 Chloride 105 Carbon Dioxide 29 Anion Gap 11 BUN 6 L Creatinine 1.38 H Est GFR ( Amer) 52 L Est GFR (Non-Af Amer) Glucose 104 Calcium 9.8 Total Bilirubin 0.4 AST 33 Alkaline Phosphatase 68 Total Protein 8.4 H Albumin 5.1 H Serum HCG, Qual NEGATIVE Urine Color YELLOW Urine Appearance SLIGHTLY-CLOUDY Urine pH 7.0 Ur Specific [place] 1.005 Urine Protein 100 H Urine Glucose (UA) NEGATIVE Urine Ketones NEGATIVE Urine Blood NEGATIVE Urine Nitrite NEGATIVE Ur Leukocyte Esterase TRACE H Urine WBC (Auto) 4 Urine RBC (Auto) 0 Impressions: Chest X-Ray 01/25/20 22:43 IMPRESSION: Negative chest copyright 2011 [employer]- All Rights Reserved Chest/Abdomen CTA 01/26/20 01:56 IMPRESSION: 1. No evidence of pulmonary embolus. 2. Early right greater than left lower lung predominant infection/pneumonia. All labs, radiographs, diagnostic studies and EKGs were personally reviewed: Yes In addition, reports of radiographic and diagnostic studies were read: Yes Assessment and Plan - Diagnosis (1) Overdose Qualifiers: Encounter type: initial encounter Injury intent: accidental or unintentional Qualified Code(s): T50.901A - Poisoning by unspecified drugs, medicaments and biological substances, accidental (unintentional), initial encounter Is this a current diagnosis for this admission?: Yes Plan: This was accidental. She in no way was suicidal she assures me. (2) Tachycardia Is this a current diagnosis for this admission?: Yes Plan: Likely due to the methamphetamine in addition to the narcotic. (3) Overdose of opiate or related narcotic Qualifiers: Encounter type: initial encounter Injury intent: undetermined intent Qualified Code(s): T40.604A - Poisoning by unspecified narcotics, undetermined, initial encounter Is this a current diagnosis for this admission?: Yes Plan: She is now off the narcan drip and we will consider discharge in AM. (4) Aspiration into airway Qualifiers: Encounter type: initial encounter Qualified Code(s): T17.908A - Unspecified foreign body in respiratory tract, part unspecified causing other injury, initial encounter Is this a current diagnosis for this admission?: Yes Plan: Not effecting her breathing at this point. Plan Summary: If she remains stable and breathing well, may discharge in AM. Critical Time Critical Time (minutes): 35 Level of Care: ICU Anticipated discharge: Home Within: within 24 hours -: 1. The care of a critical patient is a dynamic process. This note is a financial foundations representative synopsis but static in nature. The timeframe for treatments given in order is not necessarily the actual time these treatments may have been done. 2. This patient requires critical care secondary to ongoing requirements for therapy not offered or safe outside the critical care environment. Transfer to a lower level of care will result in altered life or limb morbidity and m ortality. 3. Multidisciplinary rounds completed. 4. ABCDE bundle addressed.
[2020-01-26 12:24] VITALS: BP 134/92
[2020-01-26] MEDS ORDERED: PREGABALIN 100 MG CAPSULE PO SCH (18:00)
[2020-01-26] MEDS ORDERED: (PENDING PHARMACY ID) (Pregabalin [Lyrica] 200 MG) PO SCH (18:00)
[2020-01-26] MEDS ORDERED: AZITHROMYCIN 500 MG in DEXTROSE 5%-WATER 250 ML IV SCH (22:00)
[2020-01-26] MEDS ORDERED: DULOXETINE HCL 30 MG CAPSULE.DR PO SCH (22:00)
[2020-01-26] MEDS ORDERED: CELECOXIB 200 MG CAPSULE PO SCH (22:00)
[2020-01-26] MEDS ORDERED: NORTRIPTYLINE HCL 25 MG CAPSULE PO SCH (22:00)
[2020-01-26] MEDS ORDERED: CEFTRIAXONE 1 GM/D5W RTU 1 GM/50 ML RTUPB IV SCH (22:00)
[2020-01-27] MEDS ORDERED: CALCIUM CARBONATE 600 MG/VITAMIN D3 400 UNIT TABLET PO SCH (08:00)
--- NOTE | 2020-01-27 09:21 | Left Against Medical Advice ---
Against Medical Advice Admission Date/Time: 01/26/20 05:15 Primary Care Provider: Date of Patient Emigration: 01/26/20 - Diagnosis: (1) Overdose Is this a current diagnosis for this admission?: Yes (2) Tachycardia Is this a current diagnosis for this admission?: Yes (3) Overdose of opiate or related narcotic Is this a current diagnosis for this admission?: Yes (4) Aspiration into airway Is this a current diagnosis for this admission?: Yes - Summary: Summary: Please see Admission and Progress Notes as well. FERNIE LESLIE is a 34 F, who LEFT AGAINST MEDICAL ADVICE. The Patient was admitted on 01/26/20 05:15. This patient was awake, alert and oriented when she expressed a desire to go home and visit parents. Although she was off narcan drip, she was still recovering from an aspiration. I told her I'd like to keep her an extra day for respiratory reasons. She insisted on leaving. With this in mind she agreed to sign herself out against medical advice knowing the risks.
[2020-01-27] MEDS ORDERED: [UNRECOGNIZED DRUG - OTHER] PO SCH (10:00)
[2020-01-27] MEDS ORDERED: VITAMIN D3 PO SCH (10:00)
[2020-01-27] MEDS ORDERED: CALCIUM CARBONATE PO SCH (10:00)
[2020-01-27] MEDS ORDERED: AZITHROMYCIN INJ 500 MG VIAL IV SCH (10:00)
[2020-01-27] MEDS ORDERED: MAGNESIUM OXIDE 400 MG TABLET PO SCH (10:00)
[2020-01-27] MEDS ORDERED: MULTIVITAMIN TABLET PO SCH (10:00)
== END 2020-01-26 14:07 | disposition left against medical advice (07) | DRG 917 ==
LOC: ER 21:34 → EH 01-26 05:15 → ICU 01-26 06:20
PROVIDERS: ADMIT Internal Medicine Critical Care Medicine; ATTEND Internal Medicine Critical Care Medicine
PROC: 3E0234Z Introduction of Serum, Toxoid and Vaccine into Muscle, Percutaneous Approach (ICD-10-PCS; principal; 2020-01-26)
DX: T40.601A Poisoning by unspecified narcotics, accidental (unintentional), initial encounter (principal); J18.9 Pneumonia, unspecified organism; T43.621A Poisoning by amphetamines, accidental (unintentional), initial encounter; Y92.009 Unspecified place in unspecified non-institutional (private) residence as the place of occurrence of the external cause; F17.200 Nicotine dependence, unspecified, uncomplicated; Z88.0 Allergy status to penicillin; Z88.8 Allergy status to other drugs, medicaments and biological substances; Z23 Encounter for immunization
CPT/HCPCS: 36415; 71045; 71275; 80053; 80307; 81001; 82962; 84703; 85025; 87040; 87070; 87077; 87186; 87205; 90686; 93005; 93010; 96361; 96365; 96367; 96372; 96375; 99291; J0456; J0696; J1644; J2060; J2310; J2550; J7030; J7040

== ENCOUNTER 2020-01-28 13:34 | Emergency (ER) | payer SELFPAY ==
[2020-01-28 14:39] LABS: ABSOLUTE LYMPHOCYTES (AUTO) 1.8 10^3/uL (0.5-4.7); ABSOLUTE MONOCYTES (AUTO) 0.6 10^3/uL (0.1-1.4); ABSOLUTE NEUT (AUTO) 7.5 10^3/uL (1.7-8.2); BASOPHILS % (AUTO) 0.3 % (0-2); EOSINOPHILS % (AUTO) 0.4 % (0-6); HEMATOCRIT 34.5 % (36.0-47.0); LYMPHOCYTES % (AUTO) 18.4 % (13-45); MEAN CORPUSCULAR HEMOGLOBIN 33.5 pg (27.0-33.4); MEAN CORPUSCULAR HGB CONC 35.9 g/dL (32.0-36.0); MEAN CORPUSCULAR VOLUME 93 fl (80-97); MONOCYTES % (AUTO) 6.2 % (3-13); PLATELET COUNT 189 10^3/uL (150-450); RED CELL DISTRIBUTION WIDTH 13.1 % (11.5-14.0); SEGMENTED NEUTROPHILS % (AUTO) 74.7 % (42-78); TOTAL CELLS COUNTED % (AUTO) 100 %
[2020-01-28 14:41] LABS: HEMOGLOBIN 12.4 g/dL (12.0-15.5)
[2020-01-28 14:48] LABS: APPEARANCE,URINE CLOUDY; BILIRUBIN,URINE NEGATIVE (NEGATIVE); GLUCOSE, URINE NEGATIVE (NEGATIVE); KETONES,URINE 20 mg/dL (NEGATIVE); LEUKOCYTE ESTERASE,URINE TRACE (NEGATIVE); NITRITE,URINE NEGATIVE (NEGATIVE); PROTEIN,URINE 100 mg/dL (NEGATIVE)
[2020-01-28 14:49] LABS: COLOR,URINE DARK YELLOW
[2020-01-28 14:50] LABS: ADD MANUAL MICROSCOPIC YES
--- NOTE | 2020-01-28 14:50 | ER Document Report ---
ED General - General Chief Complaint: Possible Overdose Stated Complaint: POSSIBLE OVERDOSE Time Seen by Provider: 01/28/20 14:33 TRAVEL OUTSIDE OF THE [place] IN LAST 30 DAYS: No - HPI Notes: Chief complaint: Heroin overdose 34-year-old female with longstanding history of heroin abuse was found in a local hotel room with respiratory depression and evidence that she had recently injected as well as a large amount of drug paraphernalia present. EMS administered Narcan intravenously and transported the patient here. She was petition by [facility] because she had initially been very resistive to the idea of getting any additional treatment and stated that she wanted to sign herself out immediately. [facility] has placed her on 24-hour hold IVC petition. Patient is extremely tearful and states a number of adverse socioeconomic factors at this time. She is preoccupied with the notion of leaving the emergency department immediately because she needs to see her "support dog". She also has discussed her frustration with trying to get back to her home in [place]. She is vehemently opposed to entering rehab at this time. Patient denies any current suicidal/homicidal ideation or auditory/visual hallucinations. - Related Data Allergies/Adverse Reactions: amoxicillin [From Augmentin] Allergy (Verified 01/25/20 21:53) citalopram hydrobromide [From Celexa] Allergy (Verified 02/19/19 10:10) clavulanic acid [From Augmentin] Allergy (Verified 01/25/20 21:53) eletriptan [From Relpax] Allergy (Verified 02/19/19 10:10) hydrocodone bitartrate [From Vicodin] Allergy (Verified 02/19/19 10:10) naproxen sodium [From Treximet] Allergy (Verified 02/19/19 10:10) sumatriptan [From Imitrex] Allergy (Verified 02/19/19 10:10) adhesive tape Adverse Reaction (Verified 02/19/19 10:10) Past Medical History - General Information source: Patient - Social History Smoking Status: Current Every Day Smoker Family History: Hypertension, Other - Adopted - Past Medical History Cardiac Medical History: Denies: Hx Coronary Artery Disease, Hx Heart Attack, Hx Hypertension Pulmonary Medical History: Denies: Hx Asthma, Hx Bronchitis, Hx COPD, Hx Pneumonia Neurological Medical History: Reports: Hx Migraine. Denies: Hx Cerebrovascular Accident, Hx Seizures Renal/ Medical History: Denies: Hx Peritoneal Dialysis Musculoskeletal Medical History: Reports Hx Arthritis, Reports Hx Musculoskeletal Deformity, Reports Hx Musculoskeletal Trauma Psychiatric Medical History: Reports: Hx Anxiety, Hx Depression Traumatic Medical History: Reports: Hx Traumatic Brain Injury Past Surgical History: Reports: Hx Orthopedic Surgery - Rt shoulder; Lt knee x2 - Immunizations Immunizations up to date: Yes Hx Diphtheria, Pertussis, Tetanus Vaccination: Yes Review of Systems - Review of Systems Notes: Constitutional: Negative for fever. HENT: Negative for sore throat. Eyes: Negative for visual changes. Cardiovascular: Negative for chest pain. Respiratory: Negative for shortness of breath. Gastrointestinal: Negative for abdominal pain, vomiting or diarrhea. Genitourinary: Negative for dysuria. Musculoskeletal: Negative for back pain. Skin: Negative for rash. Neurological: Negative for headaches, weakness or numbness. 10 point ROS negative except as marked above and in HPI. Physical Exam - Vital signs Vitals: Resp BP 17 150/94 H 01/28/20 14:09 01/28/20 14:09 - Notes Notes: GENERAL: Tearful female appearing approximately stated age and somewhat disheveled condition. SKIN: Good turgor. Patient has a lot of widespread excoriations and needle track lopez of upper extremities most prominent antecubital area but also noted over the dorsum of the hand and wrist. She additionally has some excoriations of the facial area and some mild acneform eruption of the facial area. HEAD: Normocephalic atraumatic. EYES: Pupils are equal small and sluggish. EOMI. Conjunctivae and sclerae clear. EARS: CANALS AND TMS CLEAR. NOSE: CLEAR. MOUTH: Moist mucosa. Good dentition. No stridor or edema. No drooling. NECK: Supple. No masses or thyromegaly. No adenopathy. Carotids 2+ without bruits. No JVD. BACK: Symmetrical without tenderness. CHEST: Respirations unlabored. Breath sounds clear and symmetrical. HEART: Regular rhythm. No murmur gallop or rub. ABDOMEN: Mildly obese. Soft nontender without masses, organomegaly or rebound. Bowel sounds normally active. No bruits. GENITALIA: Deferred. EXTREMITIES: Extensive needle tracks over both upper extremities no edema. No calf tenderness. Cap refill less than 1.5 seconds. Dorsalis pedis and posterior tibial pulses 3+ and symmetrical. NEUROLOGICAL: GCS 15. Alert and oriented x3. Fluent speech. Cranial nerves II through XII intact. Sensorimotor and cerebellar normal. Normal tone. PSYCHIATRIC: Anxious depressed and tearful. Course - Re-evaluation Re-evalutation: 01/28/20 14:59 Patient has been placed on IVC hold by mobile crisis team. At this time she is still expressing strong desire to leave. I want to be sure that she is not under persistent effects of the opiate medication she is abusing prior to discharge. I explained to the patient that I would like her to remain here for at least another 1 hour. If she is reevaluated at that time and deemed to be medically stable then we will discontinue her IVC petition and allow her to leave the premises as per her expressed desire. 01/28/20 15:56 I strongly encourage this patient to consider detox admission. She is vehemently opposed to this. She has been observed long enough at this point that I think she can reasonably be medical medically cleared to sign herself out AMA. This is her intent. - Vital Signs Vital signs: Temp Pulse Resp BP Pulse Ox 98.6 F 19 157/101 H 92 01/28/20 14:50 01/28/20 15:03 01/28/20 15:03 01/28/20 15:03 - Laboratory Result Diagrams: 01/28/20 14:09 01/28/20 14:09 Laboratory results interpreted by me: 01/28/20 01/28/20 01/28/20 13:50 14:09 14:09 RBC 3.70 L Hct 34.5 L MCH 33.5 H AST 61 H ALT 44 H Urine Protein 100 H Urine Ketones 20 H Urine Urobilinogen 2.0 H Ur Leukocyte Esterase TRACE H Urine Ascorbic Acid 40 H Salicylates < 1.0 L Acetaminophen < 10 L Discharge - Discharge Clinical Impression: Opiate overdose Qualifiers: Encounter type: initial encounter Injury intent: undetermined intent Qualified Code(s): T40.604A - Poisoning by unspecified narcotics, undetermined, initial encounter Disposition: AGAINST MEDICAL ADVICE
[2020-01-28 14:53] LABS: BACTERIA,URINE 3+ /HPF
[2020-01-28 15:05] LABS: ALBUMIN 4.1 g/dL (3.5-5.0); ALKALINE PHOSPHATASE 85 U/L (38-126); ANION GAP 13 (5-19); ASPARTATE AMINO TRANSFERASE 61 U/L (14-36); BILIRUBIN,DIRECT 0.3 mg/dL (0.0-0.4); BILIRUBIN,TOTAL 0.9 mg/dL (0.2-1.3); BLOOD UREA NITROGEN 9 mg/dL (7-20); CARBON DIOXIDE 27 mmol/L (22-30); CHLORIDE 98 mmol/L (98-107); GLUCOSE 88 mg/dL (75-110); POTASSIUM 3.6 mmol/L (3.6-5.0); TOTAL PROTEIN 7.1 g/dL (6.3-8.2)
[2020-01-28 15:07] LABS: ACETAMINOPHEN < 10 ug/mL (10-30); ALCOHOL < 10 mg/dL (NONE DETECTED); SALICYLATE < 1.0 mg/dL (2.0-20.0)
[2020-01-28 15:10] LABS: URINE BARBITURATES SCREEN NEGATIVE; URINE BENZODIAZEPINES SCREEN NEGATIVE; URINE COCAINE SCREEN NEGATIVE; URINE MARIJUANA (THC) SCREEN NEGATIVE; URINE METHADONE SCREEN NEGATIVE; URINE PHENCYCLIDINE SCREEN NEGATIVE
--- NOTE | 2020-01-28 15:45 | PSYCHOLOGICAL NOTE ---
Psych Note - Psych Note Date seen by psych provider: 01/28/20 Time seen by psych provider: 14:25 Psych Note: Reason For Consult:Overdose Consent Permissions: patient reports she does not want her father to come to her room Patient is alert and orientated to person, place, time and circumstance. Mood is dysphoric with tearful affect. Patient denies suicidal and homicidal ideation. Delusions are absent and behaviors congruent with an intact reality based presentation ie organized and linear thought process. Eye contact is poor. Conversational speech is overall within normal rate, tone and prosody. Intellectual abilities appear to be within the average range. Attention and concentration are fair. Insight, judgment, impulse control are fair. Impression\plan: Patient was placed on 24-hour petition for evaluation due to her overdose. Patient reports she is not not overdosing. She discloses she was clean for 8 months and relapsed. Patient is visibly upset and crying because she is afraid of the legal consequences i.e. charges of heroin that was in her possession. Patient denies any thoughts of wanting hurt herself or others and reports she is also upset because she was planning on looking for a place tomorrow after arriving in [place]. She had planned to leave today. Once patient is medically cleared from her overdose and no longer under the influence she is cleared from acute psychiatric services. Dr. Gallego was consulted to care management of this patient; attending physicians in agreement with recommendations and disposition.
--- NOTE | 2020-01-28 17:28 | EKG REPORT ---
SEVERITY:- OTHERWISE NORMAL ECG - SINUS TACHYCARDIA : Confirmed by: Sanchez Cooper 28-Jan-2020 17:28:11
[2020-01-28 18:02] VITALS: BP 148/101
== END 2020-01-28 18:00 | disposition left against medical advice (07) ==
LOC: ER 13:34
DX: T40.1X1A Poisoning by heroin, accidental (unintentional), initial encounter (principal); X58.XXXA Exposure to other specified factors, initial encounter; Z88.0 Allergy status to penicillin; F17.200 Nicotine dependence, unspecified, uncomplicated
CPT/HCPCS: 93005; 99285; 36415; 80307 ×5; 85025; 80053; 81001; 93010; G0480